=== PATIENT | male | born 1955 | race Caucasian/White ===

== ENCOUNTER 2018-04-23 08:56 | Outpatient (CLI) | payer MEDICARE ==
--- NOTE | 2018-04-23 09:36 | RAD ---
PA AND LATERAL VIEWS OF CHEST: Date: 04/23/18 HISTORY: COPD. FINDINGS: Comparison made with exam of 11/21/17. The heart size is normal. The lungs are expanded without focal areas of consolidation, pneumothoraces , or pleural effusions. No acute osseous abnormalities are seen. IMPRESSION: No radiographic evidence of acute cardiopulmonary process. POS: [facility]
== END 2018-04-23 08:57 | disposition home or self-care (01) ==
LOC: BICRAD 08:56
PROVIDERS: ATTEND Physician Assistant
DX: J44.9 Chronic obstructive pulmonary disease, unspecified (principal)
CPT/HCPCS: 71046

== ENCOUNTER 2020-09-05 11:16 | Inpatient (IN) | payer MEDICARE, MEDICAID ==
[2020-09-05] MEDS ORDERED: Aspirin Chewable 81 MG TAB ONE (11:24)
[2020-09-05] MEDS ORDERED: Nitroglycerin 2% Ointment 1 INCH/1 GM Packet ONE (11:24)
[2020-09-05 11:32] LABS: #Eosinphils 0.1 thou/uL (0.0-0.7); #Lymphocytes 1.6 thou/uL (1.20-3.40); #Monocytes 0.6 thou/uL (0.11-0.59); #Neutrophils 10.3 thou/uL (1.40-6.50); %Eosinophils 0.5 % (0.0-10.0); %Lymphocytes 12.9 % (21.0-51.0); %Neutrophils 81.7 % (42.0-75.0); Hemoglobin 14.2 g/dL (14.0-18.0); Mean Corpuscular HGB CONC 34.4 g/dL (32.0-36.0); Mean Corpuscular Hemoglobin 31.1 pg (27.0-31.0); Mean Corpuscular Volume 90.3 fL (78.0-98.0); Mean Platelet Volume 7.5 fL (7.4-10.4); Platelet Count 364 thou/uL (130-400); RBC Distribution Width 12.1 % (11.5-14.5); Red Blood Cell (RBC) Count 4.57 mill/uL (4.70-6.10); White Blood Cell (WBC) Count 12.6 thou/uL (4.8-10.8)
--- NOTE | 2020-09-05 11:37 | RAD ---
Portable frontal chest radiograph: 09/05/2020 COMPARISON: 11/21/2017 HISTORY: Code Green, unresponsive FINDINGS: Lungs are clear. Heart and mediastinal contours appear within normal limits. IMPRESSION: No acute findings.
[2020-09-05] MEDS ORDERED: Ondansetron PF 4 MG/2 ML Vial ONE (11:46)
[2020-09-05] MEDS ORDERED: Morphine 4 MG/ML VIAL ONE (11:46)
[2020-09-05 11:53] LABS: ALT (SGPT) 20 U/L (8-55); AST (SGOT) 13 U/L (5-34); Albumin 3.8 g/dL (3.4-4.8); Alkaline Phosphatase 58 U/L (40-110); Anion Gap 20 mmol/L (10-20); BUN (Urea Nitrogen) 26 mg/dL (8.4-25.7); Bilirubin, Total 0.5 mg/dL (0.2-1.2); Calc. Creatinine Clearance 0 mL/min (70-130); Calcium 8.1 mg/dL (7.8-10.44); Carbon Dioxide 21 mmol/L (23-31); Chloride 92 mmol/L (98-107); Globulin 2.8 g/dL (2.4-3.5); Glucose 110 mg/dL (80-115); Lipase 111 U/L (8-78); Protein, Total 6.6 g/dL (5.8-8.1); Sodium 130 mmol/L (136-145)
[2020-09-05 11:54] LABS: INR-International Normal Ratio 0.9; Prothrombin Time 12.7 sec (12.0-14.7)
[2020-09-05 11:58] LABS: Potassium 2.5 mmol/L (3.5-5.1)
[2020-09-05] MEDS ORDERED: Potassium Chloride 40 MEQ in Sodium Chloride 0.9% 250 ML 250 ML IVPB SCH ×2 (12:15→23:59)
[2020-09-05 12:19] LABS: CKMB 1.9 ng/mL (0-6.6)
[2020-09-05] MEDS ORDERED: Nitroglycerin 50 MG/250 ML BOT 250 ML ONE (13:42)
[2020-09-05] MEDS ORDERED: Heparin 25,000 units/D5W 500 ML ONE (13:42)
[2020-09-05] MEDS ORDERED: Heparin 25,000 units/D5W 500 ML IVPB SCH (14:15)
[2020-09-05] MEDS ORDERED: Heparin 10,000 UNITS/ 10 ML VIAL SLOW IVP SCH (14:15)
[2020-09-05] MEDS ORDERED: Aspirin Chewable 81 MG TAB PO SCH (14:15)
[2020-09-05] MEDS ORDERED: Nitroglycerin 50 MG/250 ML BOT 250 ML IVPB SCH (14:15)
--- NOTE | 2020-09-05 14:23 | PDOC.HHP ---
Hospitalist HPI Chest pain History of Present Illness: The patient is a 64-year-old male with past medical history of coronary artery disease, chronic kidney disease, COPD, and hypertension. The patient told me that he was on hospice and he ran out of his medications 4 days ago. He stated that he was on hospice due to coronary artery disease and renal failure prohibiting coronary angiogram. He presented to the ER with complaints of generalized weakness and substernal chest pain that has been uncontrolled since he ran out of his nitroglycerin. He also endorses some shortness of breath but denies cough or fever. In the ER, his troponin was slightly elevated. Allergies/Adverse Reactions: Allergy/AdvReac Type Severity Reaction Status Date / Time No Known Allergies Allergy Unverified 09/05/20 12:12 Past History: PMHx: As noted above PSHx: No past surgical history FHx: Noncontributory to current presentation Social: Current tobacco smoker, denies alcohol or illicit drug use. Hospitalist HPI ROS All other systems reviewed; all pertinent +/- noted in HPI/Subj Hospitalist Exam General Appearance: awake alert ENT: normocephalic atraumatic Neck: supple Heart: RRR Respiratory: normal chest expansion, no tachypnea Gastrointestinal: soft Extremities: no cyanosis, no clubbing Neurological: cranial nerve grossly intact, no focal deficits Hospitalist Results Result Diagrams: 09/05/20 11:23 09/05/20 11:23 Lab results: Laboratory Last Values WBC 12.6 thou/uL (4.8-10.8) H 09/05/20 11:23 RBC 4.57 mill/uL (4.70-6.10) L 09/05/20 11:23 Hgb 14.2 g/dL (14.0-18.0) 09/05/20 11:23 Hct 41.2 % (42.0-52.0) L 09/05/20 11:23 MCV 90.3 fL (78.0-98.0) 09/05/20 11:23 MCH 31.1 pg (27.0-31.0) H 09/05/20 11:23 MCHC 34.4 g/dL (32.0-36.0) 09/05/20 11:23 RDW 12.1 % (11.5-14.5) 09/05/20 11:23 Plt Count 364 thou/uL (130-400) 09/05/20 11:23 MPV 7.5 fL (7.4-10.4) 09/05/20 11:23 Neutrophils % 81.7 % (42.0-75.0) H 09/05/20 11:23 Lymphocytes % 12.9 % (21.0-51.0) L 09/05/20 11:23 Monocytes % 5.0 % (0.0-10.0) 09/05/20 11:23 Eosinophils % 0.5 % (0.0-10.0) 09/05/20 11:23 Basophils % 0.0 % (0.0-1.0) 09/05/20 11:23 Neutrophils # 10.3 thou/uL (1.40-6.50) H 09/05/20 11:23 Lymphocytes # 1.6 thou/uL (1.20-3.40) 09/05/20 11:23 Monocytes # 0.6 thou/uL (0.11-0.59) H 09/05/20 11:23 Eosinophils # 0.1 thou/uL (0.0-0.7) 09/05/20 11:23 Basophils # 0.0 thou/uL (0.0-0.2) 09/05/20 11:23 PT 12.7 sec (12.0-14.7) 09/05/20 11:23 INR 0.9 09/05/20 11:23 APTT 27.0 sec (22.9-36.1) 09/05/20 11:23 Sodium 130 mmol/L (136-145) L 09/05/20 11:23 Potassium 2.5 mmol/L (3.5-5.1) L* 09/05/20 11:23 Chloride 92 mmol/L (98-107) L 09/05/20 11:23 Carbon Dioxide 21 mmol/L (23-31) L 09/05/20 11:23 Anion Gap 20 mmol/L (10-20) 09/05/20 11:23 BUN 26 mg/dL (8.4-25.7) H 09/05/20 11:23 Creatinine 3.44 mg/dL (0.7-1.3) H 09/05/20 11:23 Estimated GFR (MDRD) 18 09/05/20 11:23 Glucose 110 mg/dL (80-115) 09/05/20 11:23 Calcium 8.1 mg/dL (7.8-10.44) 09/05/20 11:23 Total Bilirubin 0.5 mg/dL (0.2-1.2) 09/05/20 11:23 AST 13 U/L (5-34) 09/05/20 11:23 ALT 20 U/L (8-55) 09/05/20 11:23 Alkaline Phosphatase 58 U/L (40-110) 09/05/20 11:23 CK-MB (CK-2) 1.9 ng/mL (0-6.6) 09/05/20 11:23 Troponin I 0.049 ng/mL (< 0.028) H 09/05/20 11:23 Serum Total Protein 6.6 g/dL (5.8-8.1) 09/05/20 11:23 Albumin 3.8 g/dL (3.4-4.8) 09/05/20 11:23 Globulin 2.8 g/dL (2.4-3.5) 09/05/20 11:23 Albumin/Globulin Ratio 1.4 g/dL (1.2-2.2) 09/05/20 11:23 Lipase 111 U/L (8-78) H 09/05/20 11:23 Hospitalist H&P A/P (1) NSTEMI (non-ST elevated myocardial infarction) Code(s): I21.4 - NON-ST ELEVATION (NSTEMI) MYOCARDIAL INFARCTION Status: Acute (2) Coronary artery disease Code(s): I25.10 - ATHSCL HEART DISEASE OF [place] CORONARY ARTERY W/O ANG PCTRS Status: Acute (3) Chronic kidney disease Code(s): N18.9 - CHRONIC KIDNEY DISEASE, UNSPECIFIED Status: Acute (4) Hypertension Code(s): I10 - ESSENTIAL (PRIMARY) HYPERTENSION Status: Acute (5) COPD (chronic obstructive pulmonary disease) Status: Acute (6) Hypokalemia Code(s): E87.6 - HYPOKALEMIA Status: Acute Plan: Admit to CCU. Start aspirin 81 mg orally daily and atorvastatin 40 mg orally nightly. Start heparin drip and nitroglycerin drip per ACS protocol. Holding off on beta-blockers at this time as his heart rate is relatively low. Trend troponins every 3 hours. Cardiology service consulted. His COPD and hypertension are stable.
[2020-09-05 15:15] LABS: Hemoglobin 13.2 g/dL (14.0-18.0); Platelet Count 300 thou/uL (130-400)
[2020-09-05 15:41] LABS: Troponin I 0.046 ng/mL (< 0.028)
[2020-09-05] MEDS ORDERED: Communication Order-Pharmacy FS SCH (17:00)
[2020-09-05] MEDS ORDERED: Sodium Chloride 0.9% 1,000 ML IV SCH (17:15)
[2020-09-05] MEDS ORDERED: Morphine 4 MG/ML VIAL SLOW IVP SCH (17:15)
[2020-09-05 18:07] LABS: SARS-CoV-2 NAA Rapid Test Not Detected (NotDetected)
--- NOTE | 2020-09-05 18:30 | CON ---
DATE OF CONSULTATION: 09/05/2020 REASON FOR CONSULTATION: Unstable angina versus [id number] myocardial infarction. HISTORY OF PRESENT ILLNESS: Mr. Kennedy is a 64-year-old gentleman. He has received his cardiac care in [place]. He said he had a heart attack 5 or 6 months ago. He was noted to have severe renal insufficiency and was thought not to be a candidate for any catheterization or any interventional therapy. The patient continued to have chest pain. He says he has been on hospice now for several months. He is receiving oral narcotics to help control the pain, but he ran out a few days ago. The patient's pain became unbearable, central pressure in his chest, going across his chest, so nitroglycerin helps, but gives him a headache. Finally, he came here to the emergency room at this institution for further evaluation. MEDICATIONS: The patient's medicines at home included: 1. Oral narcotics. 2. Aspirin. 3. Statin therapy. ALLERGIES: NONE KNOWN. SOCIAL HISTORY: He says he "smokes about five cigarettes per day, but I do not inhale it." He says he does not have any family nearby. PAST MEDICAL HISTORY: As mentioned above, previous heart attack, increasing amounts of chest pain over the last several months, especially the last few weeks. PHYSICAL EXAMINATION: GENERAL: This is a 64-year-old gentleman. VITAL SIGNS: Blood pressure 130 systolic, pulse in the 60s and it is currently sinus and earlier he had a junctional rhythm. NECK: Neck veins are normal. Carotid, normal upstrokes and no bruits. LUNGS: Clear. CARDIAC: Normal S1 and normal S2. I do not hear a murmur, rub, or gallop. ABDOMEN: Obese and nontender. No hepatosplenomegaly. EXTREMITIES: Warm and dry. No clubbing or cyanosis. He has no edema. He has good posterior tibial pulses. PERTINENT LABORATORY DATA: His potassium was 2.5. Troponin 0.049 and then 0.046. Creatinine 3.44, estimated GFR is 18, compatible with stage 4 renal failure. EKG revealed a junctional rhythm, PVCs, some ST depression in V4 and V5. ASSESSMENT: 1. Acute coronary syndrome. 2. Probable multivessel coronary artery disease. Heart looks large on chest x-ray. The echocardiogram has been done. I have just been able to briefly see some images. It looks like it is at least moderately depressed, but I will officially interpret the echo shortly. 3. Hypokalemia. 4. Stage 4 renal failure. 5. The patient has intractable angina. Previously, he has been on hospice, but wishes to come off hospice if there is anything else that can be done to help him. PLAN: 1. Intravenous heparin. 2. Nitrates. 3. Aspirin. 4. We talked about cardiac catheterization. I explained to him that with a GFR of 18, very high probability, he will need to undergo hemodialysis shortly after this. He understands that entails long-term dialysis usually 3 days per week for several hours at a time. However, in view of his continued severe angina at rest, prognosis without any intervention looks very poor. He understands risk of a very high probability of renal failure, stroke, heart attack, loss of blood flow to the leg or kidney, stent thrombosis, stent restenosis. He understands that he may need bypass surgery. He is not opposed to that if it would help him. He understands it is difficult situation and is critical situation and wishes to proceed. Job ID: [id number]
[2020-09-05] MEDS: Atorvastatin Calcium 40 MG TAB PO SCH (20:45)
[2020-09-05] MEDS: Morphine 2 MG/ML VIAL SLOW IVP PRN (20:53)
[2020-09-05] MEDS ORDERED: Metoprolol Tartrate 25 MG TAB PO SCH (21:00)
[2020-09-05 23:12] LABS: Lactic Acid 1.5 mmol/L (0.5-2.2)
[2020-09-05 23:17] LABS: Albumin 3.2 g/dL (3.4-4.8); Anion Gap 17 mmol/L (10-20); BUN (Urea Nitrogen) 28 mg/dL (8.4-25.7); BUN/Creatinine Ratio 8.56; Calc. Creatinine Clearance 27 mL/min (70-130); Calcium 7.4 mg/dL (7.8-10.44); Carbon Dioxide 21 mmol/L (23-31); Chloride 99 mmol/L (98-107); Glucose 116 mg/dL (80-115); Phosphorus 4.9 mg/dL (2.3-4.7); Sodium 134 mmol/L (136-145)
[2020-09-05 23:19] LABS: Potassium 2.6 mmol/L (3.5-5.1)
[2020-09-05] MEDS ORDERED: Electrolyte Replacement Protocol 1 EACH FS SCH (23:45)
[2020-09-05] MEDS ORDERED: Calcium Gluconate 4.6 MEQ in Sodium Chloride 0.9% 100 ML IVPB SCH (23:59)
[2020-09-06] MEDS: NS 0.9% w/ 20 MEQ KCL 1,000 ML/1,000 ML BAG IV SCH ×3 (00:05→17:04)
[2020-09-06 00:14] LABS: CKMB 1.7 ng/mL (0-6.6)
[2020-09-06] MEDS: Morphine 2 MG/ML VIAL SLOW IVP PRN ×7 (00:29→21:55)
[2020-09-06 02:34] LABS: Anion Gap 13 mmol/L (10-20); BUN (Urea Nitrogen) 28 mg/dL (8.4-25.7); Calc. Creatinine Clearance 29 mL/min (70-130); Calcium 7.9 mg/dL (7.8-10.44); Carbon Dioxide 23 mmol/L (23-31); Cardiac Risk 3.4 (Less than 4.5); Chloride 102 mmol/L (98-107); Cholesterol 91 mg/dl (< 200 Desired); Glucose 117 mg/dL (80-115); HDL Cholesterol 27 mg/dL (>60 Neg Risk); LDL Cholesterol, Calculated 41 mg/dL; Sodium 135 mmol/L (136-145); Triglycerides 116 mg/dL (Less than 150)
[2020-09-06 02:52] LABS: CKMB 1.6 ng/mL (0-6.6)
[2020-09-06] MEDS ORDERED: Fluticasone Propionate Nasal Spray 16 gm Bottle NASAL SCH ×2 (03:30→09:00)
[2020-09-06 06:44] LABS: Potassium 3.1 mmol/L (3.5-5.1)
[2020-09-06] MEDS ORDERED: Fentanyl 100 MCG/2 ML VIAL ONE (07:54)
[2020-09-06] MEDS ORDERED: Midazolam HCl 2 mg/2 ml Vial ONE (07:54)
[2020-09-06] MEDS ORDERED: Aspirin 81 mg Enteric Coated Tablet PO SCH (09:00)
[2020-09-06] MEDS ORDERED: Acetaminophen/Codeine 30-300mg Tablet PO PRN ×2 (09:50)
[2020-09-06] MEDS ORDERED: Sodium Chloride 0.9% 200 ML IV PRN (09:50)
[2020-09-06] MEDS ORDERED: Nitroglycerin 0.4 MG TAB (25 Tab Bottle) SL PRN (09:50)
[2020-09-06] MEDS ORDERED: Communication Order-Pharmacy FS SCH (10:50)
[2020-09-06] MEDS ORDERED: CEFAZOLIN 2 GM in Premix Bag 1 BAG IVPB SCH (12:00)
--- NOTE | 2020-09-06 13:27 | CON ---
DATE OF CONSULTATION: 09/06/2020 REQUESTING PHYSICIAN: Marylin aMckey MD CHIEF COMPLAINT: Chest pain. HISTORY OF PRESENT ILLNESS: The patient is a 64-year-old man who until fairly recently seldom went to the doctor while vacationing in [place] last fall. He awoke with swelling in his lower extremities and face and when he presented to the emergency room, he was told that he was having a heart attack. He denied any chest pain at that time and was somewhat incredulous. He did, however, wind up driving himself to [facility] to seek medical attention. There, he was found to have renal insufficiency, severe enough to make cardiac catheterization quite problematic, and according to his description, it was deemed not a candidate for any sort of intervention and was placed on hospice. His angina has been managed with narcotics. He describes having been diagnosed with hypertension and was started on clonidine, which was switched to Norvasc and lisinopril because of dizziness and lightheadedness. He did get started on aspirin but denies any beta blockade or statin medications. PAST MEDICAL HISTORY: As above. ALLERGIES: HE DENIES ANY MEDICAL ALLERGIES. SOCIAL HISTORY: He smoked 2 to 3 packs of cigarettes per day for many years, but cut down rather drastically. FAMILY HISTORY: Significant for multiple family members with cancer and with substance abuse, but he is not aware of any family members with premature coronary disease, renal failure. REVIEW OF SYSTEMS: Negative for any eye, speech, facial, or extremity symptoms consistent with TIAs. Negative for any antecedent shortness of breath or dependent edema, other than that mentioned in the history of present illness. It is negative for any claudication. PHYSICAL EXAMINATION: GENERAL: He is 5 feet 10 inches and weighs 182 pounds. VITAL SIGNS: Heart rate is in the 60s to 70s, blood pressure 100 to 125 over 60 to 90. HEENT: He has no xanthelasma. No JVD. No carotid bruits. CHEST: Clear to auscultation. He is able to blow out forcefully against my hand. He has regular rate and rhythm without murmur or gallop. ABDOMEN: Soft, nontender he has easily palpable radial, femoral, and posterior tibial pulses bilaterally. EXTREMITIES: He has no clubbing, cyanosis, or edema. Neurologic exam is grossly intact. LABORATORY DATA: White count 12.6, hemoglobin 14.2, hematocrit 41.2, platelets 364,000. PT was 12.7, INR 0.9. Sodium was 130, potassium 3.5, chloride 92, CO2 of 21, BUN 26, creatinine 3.44 with overnight hydration in anticipation of this morning's cardiac catheterization. His BUN was 28, creatinine 3.02. Estimated GFR this morning was 21 and was 18 at the time of presentation. His troponins remained fairly steady in the 0.046 to 0.057 range. Calcium was 8.1, bilirubin 0.5, alkaline phosphatase 58, AST 13, ALT 20, protein was 6.6, albumin 3.8. Fasting lipids; triglycerides 116, cholesterol 91, LDL 41, and HDL 27. COVID negative. DIAGNOSTIC STUDIES: His chest x-ray shows perhaps some cardiomegaly, primarily LVH. He has some slight flattening to the diaphragms. No obvious aortic noncalcification. His cardiac catheterization shows a very short left main or perhaps common ostia to the LAD and circumflex system. The LAD has about a 70% or 80% ostial lesion. There is minimal disease in a large obtuse marginal that arborizes posterolaterally. He has a subtotal lesion in his mid right coronary that is very long and complex and the distal vessels were similar in size or perhaps little bit bigger than the 5-[place] catheter used for the injection and they can be seen filling on the left-sided injections as well as right. LVEF is around 35%. LV pressure was 132/4 with an EDP of 11. Aortic pressure on pullback was 143/73 with a mean of 100. IMPRESSION AND PLAN: Very high-grade ostial LAD in mid right coronary lesions with decreased LV function. Anatomically, I think the patient is an adequate candidate for revascularization and physiologically though increased risk due to his mildly decreased LV function and renal insufficiency is far from a prohibitive candidate. He has been told both by me and by his nutrition associate here that he is very apt to wind up going on dialysis, part of my discussion was that even if his renal function deteriorates and then recovers following this procedure, his baseline renal function is bad enough that he is very apt to progress to end-stage renal disease in the near future. I would anticipate that dialysis will be necessary post CABG and have discussed strategies that include placement of a dialysis catheter at the time of surgery to use in the perioperative period and to avoid use of the radial arteries to save them for long-term dialysis access. Job ID: [id number]
[2020-09-06] MEDS ORDERED: Diazepam 2 MG TAB PO PRN (14:10)
[2020-09-06] MEDS ORDERED: Potassium Chloride 20 MEQ TAB PO SCH (15:00)
[2020-09-06] MEDS: Morphine ER 15 MG TAB PO SCH ×2 (15:12→20:11)
--- NOTE | 2020-09-06 17:22 | ULT ---
RENAL ULTRASOUND: 09/06/20 PROVIDED CLINICAL HISTORY: Chronic kidney disease. FINDINGS: Right kidney measures about 10.4 x 5.7 x 4.7 cm and demonstrates no evidence for hydronephrosis or ma ss. Left kidney measures about 11 x 6.0 x 4.5 cm and demonstrates no evidence for hydronephrosis or mass. The urinary bladder is decompressed by Bel[place] catheter and not evaluated. IMPRESSION: No evidence for hydronephrosis. POS: [facility]
[2020-09-06] MEDS ORDERED: Iopamidol 370 76% 100 ML VIAL ONE (17:48)
--- NOTE | 2020-09-06 18:48 | PDOC.HOSPP ---
- Subjective Encounter Date: 09/06/20 Encounter Time: 14:00 Subjective: Patient seen and examined for non-ST elevation IA/coronary artery disease. Denies any chest pain, palpitations or syncope. No shortness of breath or fever reported - Objective Vital Signs & Weight: Vital Signs (12 hours) Temp Pulse Resp BP Pulse Ox 09/06/20 16:00 98.6 F 09/06/20 09:50 80 18 149/90 H 09/06/20 07:36 100 09/06/20 07:00 98.0 F Weight Weight 182 lb 1.629 oz Most Recent Monitor Data Heart Rate from ECG 69 NIBP 130/66 NIBP BP-Mean 87 Respiration from ECG 13 SpO2 100 I&O: 09/05/20 09/06/20 09/07/20 06:59 06:59 06:59 Intake Total 2665 1216 Output Total 1025 2320 Balance 1640 -1104 Result Diagrams: 09/05/20 15:04 09/06/20 06:24 Additional Labs: Abnormal Lab Results - Last 48 hrs 09/05/20 11:23: WBC 12.6 H, RBC 4.57 L, Hct 41.2 L, MCH 31.1 H, Neutrophils % 81.7 H, Lymphocytes % 12.9 L, Neutrophils # 10.3 H, Monocytes # 0.6 H 09/05/20 11:23: Sodium 130 L, Potassium 2.5 L*, Chloride 92 L, Carbon Dioxide 21 L, BUN 26 H, Creatinine 3.44 H, Lipase 111 H 09/05/20 11:23: Troponin I 0.049 H 09/05/20 15:04: Troponin I 0.046 H 09/05/20 15:04: Hgb 13.2 L, Hct 38.4 L 09/05/20 18:08: Troponin I 0.050 H 09/05/20 22:44: APTT 114.0 H 09/05/20 22:44: Sodium 134 L, Potassium 2.6 L*, Carbon Dioxide 21 L, BUN 28 H, Creatinine 3.27 H, Calcium 7.4 L, Phosphorus 4.9 H, Albumin 3.2 L 09/05/20 22:44: Troponin I 0.057 H 09/06/20 01:54: Sodium 135 L, Potassium 3.0 L, BUN 28 H, Creatinine 3.02 H 09/06/20 01:54: B-Natriuretic Peptide 229.9 H 09/06/20 01:54: Troponin I 0.058 H 09/06/20 06:23: APTT 82.0 H 09/06/20 06:24: Potassium 3.1 L 09/06/20 11:01: Crossmatch See Detail Radiology Reviewed by me: Yes (Chest x-rayno infiltrate) EKG Reviewed by me: Yes (Sinus rhythm on telemetry) Hospitalist ROS - Review of Systems Respiratory: denies: cough, dry, shortness of breath, hemoptysis, SOB with excertion, pleuritic pain, sputum, wheezing, other Gastrointestinal: denies: nausea, vomiting, abdominal pain, diarrhea, constipation, melena, hematochezia, other - Medication Medications: Active Medications Generic Name Dose Route Start Last Admin Trade Name Freq PRN Reason Stop Dose Admin Acetaminophen/Codeine Phosphate 2 tab 09/06/20 09:50 09/06/20 12:20 Acetaminophen/Codeine 30-300mg Tablet PO 09/07/20 08:30 2 tab Q4H PRN Administration Moderate Pain (4-6) Aspirin 81 mg 09/06/20 09:00 09/06/20 10:40 Aspirin 81 Mg Enteric Coated Tablet PO 09/07/20 08:30 81 mg DAILY KATHIE Administration Atorvastatin Calcium 40 mg 09/05/20 21:00 09/05/20 20:45 Atorvastatin Calcium 40 Mg Tab PO 09/07/20 08:30 40 mg HS KATHIE Administration Fluticasone Propionate 0 gm 09/06/20 09:00 09/06/20 09:05 Fluticasone Propionate Nasal [place] 16 Gm Bottle NASAL 09/07/20 08:30 Not Given DAILY KATHIE Potassium Chloride/Sodium Chloride 1,000 ml in 1,000 mls @ 100 mls/hr 09/05/20 23:30 09/06/20 17:04 Ns 0.9% W/ 20 Meq Kcl IV 09/07/20 08:30 1,000 mls .Q10H KATHIE Administration Morphine Sulfate 2 mg 09/05/20 14:06 09/06/20 18:11 Morphine 2 Mg/Ml Vial SLOW IVP 09/07/20 08:30 2 mg Q5MIN PRN Administration Chest Pain Morphine Sulfate 15 mg 09/06/20 15:00 09/06/20 15:12 Morphine Er 15 Mg Tab PO 09/06/20 23:59 15 mg TID KATHIE Administration Potassium Chloride 40 meq 09/06/20 15:00 09/06/20 14:11 Potassium Chloride 20 Meq Tab PO 09/07/20 08:30 40 meq 1500 KATHIE Administration Sodium Chloride 10 ml 09/06/20 09:00 09/06/20 09:05 Flush - Normal Saline 10 Ml Syringe IVF 09/07/20 08:30 Not Given Q12HR [facility] Hospitalist Exam Vitals: Vital Signs (12 hours) Temp Pulse Resp BP Pulse Ox 09/06/20 16:00 98.6 F 09/06/20 09:50 80 18 149/90 H 09/06/20 07:36 100 09/06/20 07:00 98.0 F Weight Weight 182 lb 1.629 oz Most Recent Monitor Data Heart Rate from ECG 69 NIBP 130/66 NIBP BP-Mean 87 Respiration from ECG 13 SpO2 100 General Appearance: awake alert Neck: supple, no JVD Heart: RRR, no gallops, no rubs, normal peripheral pulses Respiratory: no wheezes, no rales, no ronchi, normal chest expansion Gastrointestinal: soft, normal bowel sounds, no guarding, no rigidity Extremities: no cyanosis, no clubbing, no edema Extremities - other findings: No calf tenderness Neurological: no new deficit Psychiatric: normal affect, A&O x 3 Hosp A/P (1) NSTEMI (non-ST elevated myocardial infarction) Code(s): I21.4 - NON-ST ELEVATION (NSTEMI) MYOCARDIAL INFARCTION Status: Acute (2) Chronic kidney disease Code(s): N18.9 - CHRONIC KIDNEY DISEASE, UNSPECIFIED Status: Acute Qualifiers: Chronic kidney disease stage: stage 3 (moderate) (3) Coronary artery disease Code(s): I25.10 - ATHSCL HEART DISEASE OF [place] CORONARY ARTERY W/O ANG PCTRS Status: Acute (4) Hypertension Code(s): I10 - ESSENTIAL (PRIMARY) HYPERTENSION Status: Acute (5) Hypokalemia Code(s): E87.6 - HYPOKALEMIA Status: Acute - Plan 64-year-old male with diabetes mellitus type 2, hypertension and cardiomyopathy currently under hospice presented to the hospital on 09/05 with chest discomfort. His work-up was consistent with non-ST elevation IA. Non-ST elevation IA causing chest pain Plan for CABG in a.m. Cardiology and CV input appreciated. Continue aspirin with statins. Morphine as needed for chest pain Chronic systolic heart failure with ejection fraction 30 to 35% due to ischemic cardiomyopathy RAFI inhibitor on hold due to CKD CKD stage III Consult nephrology. Renal ultrasound negative for obstructive uropathy Electrolyte abnormality including hyponatremia, hypokalemia Replace electrolytes and monitor on the daily basis Tobacco dependence Lifestyle modification emphasized Chronic pain syndrome Patient is currently under hospice. He is on high dose of long-acting morphine with benzodiazepines. We will start MS Contin 15 mg 3 times daily for today whi ch will be discontinued at midnight
[2020-09-06] MEDS: Atorvastatin Calcium 40 MG TAB PO SCH (20:11)
--- NOTE | 2020-09-06 21:21 | EKG ---
Test Reason : STAT Blood Pressure : / mmHG Vent. Rate : 063 BPM Atrial Rate : 063 BPM P-R Int : 150 ms QRS Dur : 104 ms QT Int : 506 ms P-R-T Axes : 068 059 082 degrees QTc Int : 517 ms Sinus rhythm with occasional Premature ventricular complexes Nonspecific ST and T wave abnormality Abnormal ECG When compared with ECG of 05-SEP-2020 11:22, (Unconfirmed) Incomplete left bundle branch block is no longer Present Non-specific change in ST segment in Inferior leads Confirmed by ALMA FUNG, . SAnastacia (4) on 09/06/2020 9:21:09 PM Referred By: MAE Confirmed By:DR. Kennedy MARQUEZ MD
[2020-09-07] MEDS: Morphine 2 MG/ML VIAL SLOW IVP PRN ×4 (01:18→14:30)
[2020-09-07] MEDS: NS 0.9% w/ 20 MEQ KCL 1,000 ML/1,000 ML BAG IV SCH (03:44)
[2020-09-07 04:05] LABS: #Eosinphils 0.2 thou/uL (0.0-0.7); #Lymphocytes 2.1 thou/uL (1.20-3.40); #Monocytes 0.4 thou/uL (0.11-0.59); #Neutrophils 3.5 thou/uL (1.40-6.50); %Basophils 0.8 % (0.0-1.0); %Eosinophils 2.9 % (0.0-10.0); %Lymphocytes 32.8 % (21.0-51.0); %Neutrophils 56.4 % (42.0-75.0); Hemoglobin 12.6 g/dL (14.0-18.0); Mean Corpuscular HGB CONC 33.4 g/dL (32.0-36.0); Mean Corpuscular Hemoglobin 30.4 pg (27.0-31.0); Mean Corpuscular Volume 91.2 fL (78.0-98.0); Mean Platelet Volume 7.6 fL (7.4-10.4); Platelet Count 317 thou/uL (130-400); RBC Distribution Width 12.5 % (11.5-14.5); Red Blood Cell (RBC) Count 4.13 mill/uL (4.70-6.10); White Blood Cell (WBC) Count 6.3 thou/uL (4.8-10.8)
[2020-09-07 04:23] LABS: Anion Gap 11 mmol/L (10-20); BUN (Urea Nitrogen) 19 mg/dL (8.4-25.7); Calc. Creatinine Clearance 49 mL/min (70-130); Calcium 7.7 mg/dL (7.8-10.44); Carbon Dioxide 21 mmol/L (23-31); Chloride 111 mmol/L (98-107); Glucose 89 mg/dL (80-115); Magnesium 1.8 mg/dL (1.6-2.6); Sodium 139 mmol/L (136-145)
[2020-09-07 04:30] LABS: Phosphorus 2.4 mg/dL (2.3-4.7)
[2020-09-07] MEDS ORDERED: Fentanyl 100 MCG/2 ML VIAL ONE ×2 (06:35→13:51)
[2020-09-07] MEDS ORDERED: Midazolam HCl 2 mg/2 ml Vial ONE (06:35)
[2020-09-07] MEDS ORDERED: Vecuronium 10 MG VIAL ONE ×3 (06:36→09:56)
[2020-09-07] MEDS ORDERED: Midazolam HCl 5 mg/5 ml Vial ONE (06:36)
[2020-09-07] MEDS ORDERED: Dexmedetomidine 200 MCG/2 ML VIAL ONE (06:36)
[2020-09-07] MEDS ORDERED: Albumin 5% 500 ML ONE (06:38)
[2020-09-07] MEDS ORDERED: Heparin 10,000 UNITS/1 ML VIAL 30,000 UNITS in Sodium Chloride 0.9% 1,000 ML FS SCH (07:00)
--- NOTE | 2020-09-07 07:00 | CON ---
DATE OF CONSULTATION: 09/06/2020 CONSULTING PHYSICIAN: Dr. Hawk. REASON FOR CONSULTATION: Acute kidney injury. REASON FOR ADMISSION: Chest pain. HISTORY OF PRESENT ILLNESS: This is a 64-year-old male with history of coronary artery disease, chronic kidney disease, COPD, came to the hospital with chest pain. Apparently the patient has been having some cardiac issues and coronary artery disease, and he had a recent evaluation at [facility] where he was having renal failure and not able to have much cardiac interventions and was placed on hospice, but the patient got out of the hospice and got admitted here with chest pain and is wanting to pursue aggressive measures with plans to even have a coronary artery bypass grafting for multivessel disease. Cardiology and Cardiovascular Surgery are on board with that. The patient was also found to have with a GFR around 17. Nephrology is consulted. The patient denied to me that he had seen Nephrology in the past and he was never told to have any renal function, but from the notes it seems like he knew about his renal dysfunction. Plan is to get some labs from his previous hospitalization few months back. PAST MEDICAL HISTORY: Positive for; 1. Coronary artery disease. 2. COPD. 3. CKD. 4. Hypertension. PAST SURGICAL HISTORY: None. HOME MEDICATIONS: Reviewed. ALLERGIES: NO KNOWN DRUG ALLERGIES. SOCIAL HISTORY: History of smoking, alcohol use in the past. FAMILY HISTORY: No history of kidney disease. REVIEW OF SYSTEMS: CONSTITUTIONAL: Negative for weight loss or gain, ability to conduct usual activities. SKIN: Negative for rash, itching. EYES: Negative for double vision, pain. ENT/MOUTH: Negative for nose bleeding, neck stiffness, pain, tenderness. CARDIOVASCULAR: Negative for palpitations, dyspnea on exertion, orthopnea. RESPIRATORY: Negative for shortness of breath, wheezing, cough, hemoptysis, fever or night sweats. GASTROINTESTINAL: Negative for poor appetite, abdominal pain, heartburn, nausea, vomiting, constipation, or diarrhea. GENITOURINARY: Negative for urgency, frequency, dysuria, nocturia. MUSCULOSKELETAL: Negative for pain, swelling. NEUROLOGIC/PSYCHIATRIC: Negative for anxiety, depression. ALLERGY/IMMUNOLOGIC: Negative for skin rash, bleeding tendency. PHYSICAL EXAMINATION: GENERAL: This is a well-built male, in no apparent distress. VITAL SIGNS: Temperature 98.0, pulse 73, respiratory rate 18, blood pressure HEENT: Atraumatic, normocephalic. Oral mucosa moist. NECK: Supple. CV: S1 and S2, rate and rhythm regular. RESPIRATORY: Clear. GI: Abdomen is soft. MUSCULOSKELETAL: 1+ edema. DERMATOLOGIC: No skin rash. NEUROLOGIC: Alert and awake. PSYCHIATRIC: Mood and affect normal. LABORATORY DATA: Hemoglobin 13.2. Potassium 3.0, BUN is 28, creatinine is 3.02. ASSESSMENT AND PLAN: 1. Acute kidney injury on chronic kidney disease stage 4, stable, but the patient is high risk for complications during the surgery and he understands that and he also has a high risk of leading to end-stage renal disease requiring dialysis. The patient is to take the risk at this point, given his cardiac status. 2. Hyponatremia. 3. Hypokalemia. Replace and monitor. 4. Edema. 5. History of hypertension. 6. Cardiorenal syndrome. 7. Anemia of chronic disease. We will check CKD labs. We will check renal ultrasound. We will get labs from his previous hospitalization. The patient understands renal risks associated with surgery and willing to take the risk and proceed with surgery. We will continue to follow his renal function perioperatively. Thank you for the consult. Job ID: [id number]
[2020-09-07] MEDS ORDERED: CEFAZOLIN 2 GM in Premix Bag 1 BAG IVPB SCH (07:15)
[2020-09-07] MEDS ORDERED: Heparin 10,000 UNITS/ 10 ML VIAL ONE (08:20)
[2020-09-07] MEDS ORDERED: Sodium Chloride 0.9% 10 ML ONE (08:20)
[2020-09-07] MEDS ORDERED: Sodium Chloride 0.9% 20 ML ONE (08:45)
[2020-09-07] MEDS ORDERED: Guaifenesin DM 100-10/5 ML UDCUP PO PRN (09:26)
[2020-09-07] MEDS ORDERED: Promethazine HCl 25 MG/ML VIAL IM PRN (09:26)
[2020-09-07] MEDS ORDERED: Bisacodyl 10 MG SUPP PR PRN (09:26)
[2020-09-07] MEDS ORDERED: Acetaminophen 325 MG TAB PO PRN (09:26)
[2020-09-07] MEDS ORDERED: Norepinephrine 8 MG/0.9% NS 250 ML IVPB PRN (09:26)
[2020-09-07] MEDS ORDERED: Fentanyl 100 MCG/2 ML VIAL SLOW IVP PRN (09:26)
[2020-09-07] MEDS ORDERED: Mag-Al 1200 mg/1200 mg/30 ML UDCUP PO PRN (09:26)
[2020-09-07] MEDS ORDERED: Potassium Chloride 20 MEQ/100 ML PREMIX BAG IVPB PRN (09:26)
[2020-09-07] MEDS ORDERED: Ondansetron PF 4 MG/2 ML Vial IVP PRN (09:26)
[2020-09-07] MEDS ORDERED: hydrALAZINE 20 MG/ML VIAL SLOW IVP PRN (09:26)
[2020-09-07] MEDS ORDERED: Nitroglycerin 50 MG/250 ML BOT 250 ML IVPB PRN (09:26)
[2020-09-07] MEDS ORDERED: Post-Op Insulin Drip Protocol IVPB ONE (09:26)
[2020-09-07] MEDS ORDERED: Hetastarch 6% 500 ML 500 ML IVPB PRN (09:26)
[2020-09-07] MEDS ORDERED: niCARdipine 25 MG in Sodium Chloride 0.9% 250 ML 240 ML IVPB PRN (09:26)
[2020-09-07] MEDS ORDERED: Bisacodyl 5 MG TAB PO PRN (09:26)
[2020-09-07] MEDS ORDERED: Potassium Chloride 60 MEQ/30 ML VIAL ONE (09:56)
[2020-09-07] MEDS ORDERED: Sodium Bicarb 50 MEQ/50 ML Abboject 8.4% SYRINGE ONE ×2 (09:56→14:51)
[2020-09-07] MEDS ORDERED: Heparin 5,000 UNITS/ML VIAL ONE (09:56)
[2020-09-07] MEDS ORDERED: Cardioplegic Soln 1,000 ML BAG ONE (09:56)
[2020-09-07] MEDS ORDERED: Ketorolac Tromethamine 30 MG/ML VIAL ONE (09:56)
[2020-09-07] MEDS ORDERED: Ondansetron PF 4 MG/2 ML Vial ONE (09:56)
[2020-09-07] MEDS ORDERED: Aminocaproic Acid 5 GM/20 ML VIAL ONE (09:56)
[2020-09-07] MEDS ORDERED: Norepinephrine 4 MG/4 ML VIAL ONE (09:56)
[2020-09-07] MEDS ORDERED: Heparin 30,000 units/30 ml VIAL ONE (09:56)
[2020-09-07] MEDS ORDERED: Calcium Chloride 1 GM/10 ML Abboject SYRINGE ONE (09:56)
[2020-09-07] MEDS ORDERED: PHENYLEPHRINE-NS 100 MCG/ML 10 ML SYRINGE ONE (09:56)
[2020-09-07] MEDS ORDERED: Lidocaine 2% PF 100 mg/5 ml Syringe ONE (09:56)
[2020-09-07] MEDS ORDERED: Protamine Sulfate 250 MG/25 ML VIAL ONE (09:56)
[2020-09-07] MEDS ORDERED: Lidocaine 1% PF 5 ML VIAL ONE ×2 (09:56)
[2020-09-07] MEDS ORDERED: Dexamethasone 20 MG/5 ML VIAL ONE (09:56)
[2020-09-07] MEDS ORDERED: Thrombin 5000 UNITS/5 ML VIAL ONE (09:56)
[2020-09-07] MEDS ORDERED: Mannitol 12.5 GM/50 ML ONE (09:56)
[2020-09-07] MEDS ORDERED: Papaverine 60 MG/2 ML VIAL ONE (09:56)
[2020-09-07] MEDS ORDERED: Magnesium Sulfate 1 GM/2 ML VIAL ONE (09:56)
[2020-09-07] MEDS ORDERED: Milrinone 10 MG/10 ML VIAL ONE (10:06)
[2020-09-07] MEDS ORDERED: Insulin Regular 300 UNITS/3 ML VIAL SC PRN (10:45)
[2020-09-07] MEDS ORDERED: HUMULIN R 100 UNITS in Sodium Chloride 0.9% 100 ML IVPB SCH (10:45)
[2020-09-07] MEDS ORDERED: Dextrose 5% in Water 1,000 ML IV PRN (10:45)
[2020-09-07] MEDS ORDERED: Dextrose 50% Abboject 50 ML SYRINGE SLOW IVP PRN (10:45)
[2020-09-07] MEDS ORDERED: CEFAZOLIN 1 GM VIAL ONE ×2 (10:46→10:53)
[2020-09-07] MEDS: Docusate 100 MG CAP PO SCH ×2 (11:35→20:32)
[2020-09-07] MEDS ORDERED: Ergocalciferol 1.25 MG(50,000 UNITS) CAP PO SCH (12:00)
[2020-09-07] MEDS ORDERED: Multivit, Therapeutic 1 TAB PO SCH (12:00)
[2020-09-07] MEDS ORDERED: Amiodarone 150 MG/3 ML VIAL ONE (12:12)
--- NOTE | 2020-09-07 13:09 | PRG ---
DATE OF SERVICE: 09/07/2020 SUBJECTIVE: Patient was seen and examined at bedside and overnight events noted. Patient denies any shortness of breath or chest pain or palpitation. No history of nausea or vomiting or diarrhea or fever or chills or cramps. OBJECTIVE: General: This is a well-built male, in no apparent distress. Vital Signs: Temperature 97.4. Heart Rate 68. Respiratory rate 22. Blood pressure 135/72. HEENT: Atraumatic, normocephalic. Oral mucosa is moist. Neck: Supple. Cardiovascular: S1, S2 heard. Rate and rhythm regular. Respiratory: Clear to auscultation. Gastrointestinal: Abdomen is soft. Musculoskeletal: No tenderness. No edema. Dermatologic: No skin rash. Neurologic: Alert and awake and oriented x3. No focal neurologic deficits. Moving all the extremities. Psychiatric: Mood and affect normal. LABORATORY DATA: Potassium 4.0, BUN is 19, creatinine is 1.7. ASSESSMENT AND PLAN: 1. Acute kidney injury on chronic kidney disease, stage 3. Renal function improvement today. 2. Hyponatremia. 3. Hypokalemia. 4. Edema. 5. Hypertension. 6. Cardiorenal syndrome. 7. Anemia of chronic disease. We will continue to monitor labs. Avoid nephrotoxins. We will follow. Job ID: [id number]
[2020-09-07] MEDS ORDERED: SUGAMMADEX SODIUM 200 MG/2 ML VIAL ONE (13:22)
[2020-09-07] MEDS: Sodium Chloride 0.9% 1,000 ML IV SCH ×2 (13:24→20:34)
[2020-09-07 14:17] LABS: Hemoglobin 12.9 g/dL (14.0-18.0); Mean Corpuscular HGB CONC 32.6 g/dL (32.0-36.0); Mean Corpuscular Hemoglobin 30.6 pg (27.0-31.0); Mean Corpuscular Volume 93.6 fL (78.0-98.0); Mean Platelet Volume 8.1 fL (7.4-10.4); Platelet Count 295 thou/uL (130-400); RBC Distribution Width 12.6 % (11.5-14.5); Red Blood Cell (RBC) Count 4.22 mill/uL (4.70-6.10); White Blood Cell (WBC) Count 23.7 thou/uL (4.8-10.8)
[2020-09-07 14:20] LABS: INR-International Normal Ratio 1.3; PTT 28.8 sec (22.9-36.1); Prothrombin Time 16.1 sec (12.0-14.7)
[2020-09-07 14:26] LABS: Potassium 4.8 mmol/L (3.5-5.1)
[2020-09-07 14:33] LABS: Anion Gap 16 mmol/L (10-20); BUN (Urea Nitrogen) 17 mg/dL (8.4-25.7); Calc. Creatinine Clearance 55 mL/min (70-130); Calcium 8.1 mg/dL (7.8-10.44); Carbon Dioxide 18 mmol/L (23-31); Chloride 113 mmol/L (98-107); Glucose 180 mg/dL (80-115); Potassium 4.8 mmol/L (3.5-5.1); Sodium 142 mmol/L (136-145)
[2020-09-07 14:34] LABS: Band 11 % (5-11); Eosinophils 1 % (0-10); Lymphocytes 4 % (21-51); MDiff Complete? YES; Monocytes 3 % (0-10); Neutrophil 77 % (42-75); Ovalocytes SLIGHT = 2-5 cells (100X) (0-1/hpf); Platelet Morphology Comment Appears Adequate; Polychromasia SLIGHT = 2-3 cells (100X) (0-2/hpf); Reactive Lymphocytes 2 % (0-10)
[2020-09-07 14:37] LABS: Actual Bicarbonate (HCO3a) 20.6 mEq/L (22-28); Analyzer IN Cardio OR; Base Excess (BEa) -6.5 mEq/L (-2.0 to +3.0); CO2 Tension 47.2 mmHg (35.0-45.0); Calcium, Ionized (arterial) 1.16 mmol/L (1.12-1.30); Carboxyhemoglobin (COHb) 0.5 gm% (0.0-3.0); Hemoglobin (Hb) 12.8 g/dL (14.0-18.0); O2 Tension (PaO2), arterial 227.8 mmHg (> 80.0); Potassium - ABG Lab 4.47 mmol/L (3.70-5.30); pH, Arterial 7.26 (7.35-7.45)
[2020-09-07 14:38] LABS: Puncture Site Arterial Line
--- NOTE | 2020-09-07 14:55 | RAD ---
CHEST ONE VIEW: 09/07/20 HISTORY: Open heart surgery. COMPARISON: Radiograph prior day. FINDINGS: Multiple midline sternotomy wires. Mediastinal drains are present. Right thoracostomy tube is in place. No high grade pneumothorax. Right subclavian central venous cath eter tip projects over the inferior SVC. No confluent air space consolidation, pneumothorax or effusion. No acute osseous abnormality. IMPRESSION: Uncomplicated postoperative appearance. POS: HOME
[2020-09-07] MEDS ORDERED: Sodium Bicarb 50 MEQ/50 ML Abboject 8.4% SYRINGE IVP SCH (15:15)
--- NOTE | 2020-09-07 15:38 | PDOC.HOSPP ---
- Subjective Encounter Date: 09/07/20 Encounter Time: 15:36 non-verbal Subjective: Patient seen and examined for non-ST elevation WA. Status post CABG. Events noted. - Objective Vital Signs & Weight: Vital Signs (12 hours) Temp Pulse Ox 09/07/20 14:43 100 09/07/20 14:00 97.7 F 09/07/20 07:12 100 09/07/20 07:00 97.4 F L 09/07/20 04:00 97.9 F Weight Weight 182 lb 1.629 oz Most Recent Monitor Data Heart Rate from ECG 79 NIBP 109/65 NIBP BP-Mean 79 Respiration from ECG 14 SpO2 100 I&O: 09/06/20 09/07/20 09/08/20 06:59 06:59 06:59 Intake Total 2665 2578 Output Total 1027 4190 115 Balance 1640 -1612 -115 Result Diagrams: 09/07/20 13:57 09/07/20 13:57 Additional Labs: Accuchecks 09/07/20 09/07/20 09/07/20 14:04 13:18 11:38 POC Glucose 162 H 156 H 139 H 09/07/20 09/07/20 11:04 08:24 POC Glucose 129 H 94 Abnormal Lab Results - Last 48 hrs 09/05/20 18:08: Troponin I 0.050 H 09/05/20 22:44: APTT 114.0 H 09/05/20 22:44: Sodium 134 L, Potassium 2.6 L*, Carbon Dioxide 21 L, BUN 28 H, Creatinine 3.27 H, Calcium 7.4 L, Phosphorus 4.9 H, Albumin 3.2 L 09/05/20 22:44: Troponin I 0.057 H 09/06/20 01:54: Sodium 135 L, Potassium 3.0 L, BUN 28 H, Creatinine 3.02 H 09/06/20 01:54: B-Natriuretic Peptide 229.9 H 09/06/20 01:54: Troponin I 0.058 H 09/06/20 06:23: APTT 82.0 H 09/06/20 06:24: Potassium 3.1 L 09/06/20 11:01: Crossmatch See Detail 09/07/20 03:35: Chloride 111 H, Carbon Dioxide 21 L, Creatinine 1.79 H, Calcium 7.7 L 09/07/20 03:35: RBC 4.13 L, Hgb 12.6 L, Hct 37.7 L 09/07/20 03:35: PTH Intact 177.4 H 09/07/20 03:35: 25-OH Vitamin D Total 11.2 L 09/07/20 13:57: Chloride 113 H, Carbon Dioxide 18 L, Creatinine 1.61 H 09/07/20 13:57: WBC 23.7 H, RBC 4.22 L, Hgb 12.9 L, Hct 39.5 L, Neutrophils % (Manual) 77 H, Lymphocytes % (Manual) 4 L 09/07/20 13:57: PT 16.1 H 09/07/20 14:37: Bicarbonate Actual 20.6 L, ABG pH 7.26 L, ABG pCO2 47.2 H, ABG pO2 227.8 H, ABG O2 Sat (Measured) 99.4 H, ABG Base Excess -6.5 L, ABG Hematocrit 38.0 L, ABG Hemoglobin 12.8 L, ABG Oxyhemoglobin 98.8 H, Chloride 114 H Radiology Reviewed by me: Yes (CXR - no new infiltrate) EKG Reviewed by me: Yes (Sinus rhythm on telemetry) Hospitalist ROS - Review of Systems Respiratory: denies: cough, dry, shortness of breath, hemoptysis, SOB with excertion, pleuritic pain, sputum, wheezing, other Cardiovascular: denies: chest pain, palpitations, orthopnea, paroxysmal noc. dyspnea, edema, light headedness, other - Medication Medications: Active Medications Generic Name Dose Route Start Last Admin Trade Name Elyssa PRN Reason Stop Dose Admin Docusate Sodium 100 mg 09/07/20 09:26 09/07/20 11:35 Docusate 100 Mg Cap PO Not Given BID KATHIE Ergocalciferol 1.25 mg 09/07/20 12:00 09/07/20 13:24 Ergocalciferol 1.25 Mg(50,000 Units) Cap PO Not Given Q7D KATHIE Sodium Chloride 1,000 mls @ 100 mls/hr 09/07/20 09:26 09/07/20 13:24 Normal Saline 0.9% IV 1,000 mls .Q10H KATHIE Administration Insulin Human Regular 100 101 mls @ 0 mls/hr 09/07/20 10:45 09/07/20 14:31 units/ Sodium Chloride IVPB 101 mls INF KATHIE Administration Protocol As Directed Morphine Sulfate 2 mg 09/07/20 09:26 09/07/20 14:30 Morphine 2 Mg/Ml Vial SLOW IVP 2 mg Q15MIN PRN Administration Severe Pain (7-10) Hospitalist Exam Vitals: Vital Signs (12 hours) Temp Pulse Ox 09/07/20 14:43 100 09/07/20 14:00 97.7 F 09/07/20 07:12 100 09/07/20 07:00 97.4 F L 09/07/20 04:00 97.9 F Weight Weight 182 lb 1.629 oz Most Recent Monitor Data Heart Rate from ECG 79 NIBP 109/65 NIBP BP-Mean 79 Respiration from ECG 14 SpO2 100 General Appearance: awake alert Neck: supple, symmetric, no JVD Heart: RRR, no gallops, no rubs, normal peripheral pulses Respiratory: no wheezes, no rales, no ronchi, normal chest expansion Gastrointestinal: soft, non-distended, normal bowel sounds, no guarding, no rigidity Extremities: no cyanosis, no clubbing, no edema Neurological: no new deficit Psychiatric: normal affect, A&O x 3 Hosp A/P (1) NSTEMI (non-ST elevated myocardial infarction) Code(s): I21.4 - NON-ST ELEVATION (NSTEMI) MYOCARDIAL INFARCTION Status: Acute (2) Chronic kidney disease Code(s): N18.9 - CHRONIC KIDNEY DISEASE, UNSPECIFIED Status: Acute Qualifiers: Chronic kidney disease stage: stage 3 (moderate) (3) Coronary artery disease Code(s): I25.10 - ATHSCL HEART DISEASE OF [place] CORONARY ARTERY W/O ANG PCTRS Status: Acute (4) Hypertension Code(s): I10 - ESSENTIAL (PRIMARY) HYPERTENSION Status: Acute (5) Hypokalemia Code(s): E87.6 - HYPOKALEMIA Status: Acute - Plan DVT proph w/SCDs 64-year-old male with diabetes mellitus type 2, hypertension and cardiomyopathy currently under hospice presented to the hospital on 09/05 with chest discomfort. His work-up was consistent with non-ST elevation WA. He underwent coronary artery bypass grafting on 09/07. Non-ST elevation WA causing chest pain Status post CABG. Continue aspirin with statins. Pain control. Continue CCU monitoring Chronic systolic heart failure with ejection fraction 30 to 35% due to ischemic cardiomyopathy RAFI inhibitor on hold due to CKD AMINA on CKD stage III Nephrology input appreciated. Renal ultrasound negative for obstructive uropathy. Continue to monitor Electrolyte abnormality including hyponatremia, hypokalemia Recheck labs in a.m. Tobacco dependence Lifestyle modification emphasized Chronic pain syndrome Patient was on hospice prior to admission. He was on up to 180 mg of long- acting morphine along with approximately 6 to 10 mg of Valium on the daily basis. Will continue IV morphine as needed for pain control.
[2020-09-07] MEDS: Morphine ER 15 MG TAB PO SCH ×2 (15:41→20:31)
[2020-09-07] MEDS: HYDROcodone/Acetaminophen 5/325 mg Tablet PO PRN ×2 (15:45→21:42)
--- NOTE | 2020-09-07 16:11 | OP ---
DATE OF PROCEDURE: 09/07/2020 PROCEDURES PERFORMED: Coronary artery bypass grafting x2 with left internal mammary artery to the distal LAD and right internal mammary artery to the proximal PDA; 15 x 23 cm (from the cuff) tunneled right internal jugular dialysis catheter placement with ultrasonographic and fluoroscopic guidance. PREOPERATIVE DIAGNOSES: Coronary artery disease with ischemic cardiomyopathy and unstable angina; stage IV chronic renal insufficiency. POSTOPERATIVE DIAGNOSES: Coronary artery disease with ischemic cardiomyopathy and unstable angina; stage IV chronic renal insufficiency. ASSISTANTS: 1. Thomas Lopez MD. 2. Alexander Pineda MD. INDICATIONS: The patient is a 64-year-old man, who until very recently seldom went to the doctor, when he first presented with anasarca and diagnosed with a myocardial infarction, who self-referred to a public facility and was told that because of advanced renal insufficiency that he was not a candidate for intervention, and according to him, was enrolled in hospice and was being maintained on oral morphine to treat his angina. He recently presented here with angina and after discussing options that included intervention with its attendant risks of progressing to end-stage renal disease, he underwent catheterization, which demonstrated a very high-grade LAD lesion and a high-grade ostial LAD lesion. He is now taken to the operating room for surgical revascularization. FINDINGS: Tip of the catheter in the superior cava near the junction with the right atrium. Both ports easily aspirated and flushed. Pump time 61 minute. Cross-clamp time 35 minutes. Good quality IMAs with excellent flow. The distal LAD was a good quality 2 mm vessel. The proximal PDA was a good quality 1.5 mm vessel. DESCRIPTION OF PROCEDURE: After informed consent was obtained, the patient was taken to the operating room, placed in supine position on the operating table. After the induction of general anesthesia, the patient's greater saphenous veins were ultrasonographically mapped and marked. His neck and upper chest were prepped and draped in sterile fashion. His right internal jugular vein was identified ultrasonographically and cannulated. A guidewire was passed. An exit site for his catheter was selected and an incision was made on the right anterior chest and then an incision incorporating the wire exit site was made in the skin crease on the right neck and the subcutaneous tissue bluntly dilated. The dialysis catheter was passed through subcutaneous tunnel from the chest to the neck and then the vascular access tract was dilated and a sheath inserted. The catheter was placed through that sheath, which was stripped away. Under fluoroscopy, however, it could be appreciated that the catheter tip lays rather high in the vena cava and upon questioning the OR staff, there was a miscommunication with respect to nomenclature on the catheter designations under fluoroscopy, I measured down to the mid atrium up to the neck incision, it was roughly 24 cm. The longer catheters were either 23 cm from the cuff or 27 cm. I opted to go with a 23 cm. The catheter was delivered some from the neck wound and clamped. It was cut on the port side of the clamp and then a guidewire passed through it to allow for removal of the catheter while maintaining wire access, through which a second sheath and catheter could be passed. The longer catheter lays in the superior cava near the junction with the right atrium that easily aspirated and flushed was instilled intraluminally and both ports were capped well away from the exit site. The right subclavian vein was then accessed, and by the Seldinger technique, a triple-lumen central line was placed for secure venous access. All 3 ports easily aspirated and flushed. The lines were secured to the skin with suture, and neck incision was closed with a [id number] subcutaneous Vicryl and running 4-0 Vicryl subcuticular for the skin. Dermabond was applied to that neck wound and then the drapes were removed. The patient's torso, groins, and lower extremities were prepped and draped in sterile fashion. A median sternotomy was performed. The left internal mammary artery was mobilized as a skeletonized in-situ graft from the level of xiphoid to the level of the subclavian vein, controlling side branches with small hemoclips. The patient was given 10,000 units of heparin. The mammary was ligated and divided distally. There was good flow through the mammary and it dilated nicely when instilled intraluminally with papaverine solution. The mediastinal reflections of the pleura were mobilized and rents in the pleura were repaired with running Prolene. The right internal mammary artery was then mobilized in a similar fashion through an extrapleural exposure and the remaining heparin necessary for cardiopulmonary bypass was administered. The right mammary dilated nicely and appeared to be of adequate length to reach. The PDA has an in-situ graft. Both mammary beds were inspected for hemostasis. A [place] retractor was put into place. The pericardium was opened and marsupialized. The aorta was palpated and was soft. A double concentric pursestring of 2-0 Ethibond was placed in the ascending aorta within the pericardial reflection and a single pursestring was placed in the right atrial appendage. Aortic and venous cannulae were inserted and secured by their pursestrings. Cardiopulmonary bypass was instituted and the patient was systemically cooled. The heart was examined. The vessels to be bypassed were identified. A longitudinal incision was made anterior to the left phrenic nerve at the level of right ventricular outflow tract and a cruciate incision was made anterior to the right phrenic nerve, just anterior to the junction of the inferior cava with right atrium. An aortic cross-clamp was applied and cardioplegia was administered through an aortic root needle, when arrest had been achieved, the right internal mammary was oriented and passed through the cruciate pericardiotomy. The proximal PDA was opened with a [place] blade and Beny scissors and the mammary was anastomosed to it end-to-side with running 7-0 Prolene suture and tacked to the epicardium. Attention was then turned to the distal LAD. It was opened and grafted with the left internal mammary in a similar fashion. The aortic cross-clamp was removed. The anastomoses were inspected for hemostasis. A posterior pericardial drain and a right pleural drain were brought out through separate incisions and secured with suture. Right atrial and right ventricular temporary epicardial pacing wires were placed. The root needle was removed and its insertion site oversewn to achieve hemostasis. The patient was weaned from cardiopulmonary bypass. The aortic and venous cannulae removed and their pursestring secured. Protamine was administered. When hemostasis was adequate, an anterior mediastinal drain was placed and the pericardium was easily closed over it with running Vicryl. The mammary beds were again inspected for hemostasis. The cut surfaces of the sternum were treated with platelet rich GPS and vancomycin paste. The sternum was reapproximated with #7 stainless steel wires. The soft tissues were irrigated and treated with platelet poor GPS. The fascia was closed over the wires with running #1 Vicryl and the subcutaneous tissue was closed with running 2-0 Vicryl. The skin was closed with a running 3-0 Vicryl subcuticular suture and Dermabond. The wounds were dressed. The patient was awakened and extubated in the operating room and taken to the intensive care unit in stable condition. Job ID: [id number]
[2020-09-07] MEDS: Fentanyl 100 MCG/2 ML VIAL SLOW IVP PRN ×3 (16:57→21:57)
[2020-09-07] MEDS: Calcium Carbonate 600 MG + Vit D TAB PO SCH (16:59)
[2020-09-07] MEDS ORDERED: cloNIDine 0.1mg/24 Hour PATCH TD SCH (19:30)
[2020-09-07] MEDS ORDERED: Famotidine/PF 20 mg/2ml Vial SLOW IVP SCH (21:00)
[2020-09-08] MEDS: Fentanyl 100 MCG/2 ML VIAL SLOW IVP PRN ×5 (00:26→23:09)
[2020-09-08] MEDS: HYDROcodone/Acetaminophen 5/325 mg Tablet PO PRN ×4 (04:53→18:31)
[2020-09-08 05:00] LABS: #Basophils 0.1 thou/uL (0.0-0.2); #Lymphocytes 0.9 thou/uL (1.20-3.40); #Monocytes 0.4 thou/uL (0.11-0.59); #Neutrophils 11.7 thou/uL (1.40-6.50); %Basophils 0.5 % (0.0-1.0); %Eosinophils 0.2 % (0.0-10.0); %Lymphocytes 6.6 % (21.0-51.0); %Monocytes 3.3 % (0.0-10.0); %Neutrophils 89.4 % (42.0-75.0); Hemoglobin 11.6 g/dL (14.0-18.0); Mean Corpuscular HGB CONC 32.8 g/dL (32.0-36.0); Mean Corpuscular Hemoglobin 30.4 pg (27.0-31.0); Mean Corpuscular Volume 92.8 fL (78.0-98.0); Mean Platelet Volume 8.9 fL (7.4-10.4); Platelet Count 233 thou/uL (130-400); RBC Distribution Width 12.7 % (11.5-14.5); Red Blood Cell (RBC) Count 3.82 mill/uL (4.70-6.10)
[2020-09-08 05:16] LABS: Anion Gap 17 mmol/L (10-20); BUN (Urea Nitrogen) 21 mg/dL (8.4-25.7); Calc. Creatinine Clearance 54 mL/min (70-130); Carbon Dioxide 19 mmol/L (23-31); Chloride 108 mmol/L (98-107); Glucose 126 mg/dL (80-115); Magnesium 1.8 mg/dL (1.6-2.6); Potassium 4.2 mmol/L (3.5-5.1); Sodium 140 mmol/L (136-145)
[2020-09-08] MEDS: Sodium Chloride 0.9% 1,000 ML IV SCH (06:33)
[2020-09-08] MEDS: Docusate 100 MG CAP PO SCH ×2 (08:30→21:07)
[2020-09-08] MEDS: Calcium Carbonate 600 MG + Vit D TAB PO SCH ×2 (08:30→16:29)
[2020-09-08] MEDS: Multivit, Therapeutic 1 TAB PO SCH (08:30)
[2020-09-08] MEDS: Morphine ER 15 MG TAB PO SCH ×3 (08:30→21:45)
--- NOTE | 2020-09-08 09:57 | PDOC.CPN ---
- Subjective Date: 09/08/20 Time: 12:38 Interval history: Main compaint of having CT in place No other issues - Objective Allergies/Adverse Reactions: Allergies Allergy/AdvReac Type Severity Reaction Status Date / Time No Known Allergies Allergy Unverified 09/05/20 12:12 Visit Medications: Current Medications Acetaminophen (Acetaminophen 325 Mg Tab) 650 mg PO Q6H PRN PRN Reason: Headache/Fever Or Mild Pain Last Admin: 09/08/20 03:00 Dose: 650 mg Documented by: Hydrocodone Bitart/Acetaminophen (Hydrocodone/Acetaminophen 5/325 Mg Tablet) 1 tab PO Q4H PRN PRN Reason: Moderate Pain (4-6) Hydrocodone Bitart/Acetaminophen (Hydrocodone/Acetaminophen 5/325 Mg Tablet) 2 tab PO Q4H PRN PRN Reason: Severe Pain (7-10) Last Admin: 09/08/20 09:41 Dose: 2 tab Documented by: Al Hydroxide/Mg Hydroxide (Mag-Al 1200 Mg/1200 Mg/30 Ml Udcup) 30 ml PO Q4H PRN PRN Reason: Indigestion Aspirin (Aspirin 325 Mg Enteric Coated Tablet) 325 mg PO DAILY [facility] Atorvastatin Calcium (Atorvastatin Calcium 20 Mg Tab) 20 mg PO HS [facility] Bisacodyl (Bisacodyl 5 Mg Tab) 10 mg PO Q12H PRN PRN Reason: Constipation Bisacodyl (Bisacodyl 10 Mg Supp) 10 mg AR Q12H PRN PRN Reason: Constipation Calcium/Vitamin D (Calcium Carbonate 600 Mg + Vit D Tab) 1 tab PO BID[facility] Last Admin: 09/08/20 08:30 Dose: 1 tab Documented by: Clonidine (Clonidine 0.1mg/24 Hour Patch) 0.1 mg TD Q7DAYS [facility] Docusate Sodium (Docusate 100 Mg Cap) 100 mg PO BID [facility] Last Admin: 09/08/20 08:30 Dose: 100 mg Documented by: Ergocalciferol (Ergocalciferol 1.25 Mg(50,000 Units) Cap) 1.25 mg PO Q7D [facility] Last Admin: 09/07/20 13:24 Dose: Not Given Documented by: Fentanyl (Fentanyl 100 Mcg/2 Ml Vial) 25 mcg SLOW IVP Q2H PRN PRN Reason: Moderate Pain (4-6) Stop: 09/09/20 07:59 Fentanyl (Fentanyl 100 Mcg/2 Ml Vial) 50 mcg SLOW IVP Q2H PRN PRN Reason: Severe Pain (7-10) Stop: 09/09/20 07:59 Last Admin: 09/08/20 06:20 Dose: 50 mcg Documented by: Glucagon (Glucagon 1 Mg/Ml Vial) 1 mg SC PRN PRN PRN Reason: PER HYPOGLYCEMIC PROTOCOL Guaifenesin/Dextromethorphan (Guaifenesin Dm 100-10/5 Ml Udcup) 15 ml PO Q4H PRN PRN Reason: Cough Last Admin: 09/08/20 03:24 Dose: 15 ml Documented by: Hydralazine HCl (Hydralazine 20 Mg/Ml Vial) 10 mg SLOW IVP Q6H PRN PRN Reason: To Maintain SBP< 140mmHG Metoprolol Tartrate (Metoprolol Tartrate 25 Mg Tab) 12.5 mg PO BID [facility] Morphine Sulfate (Morphine 2 Mg/Ml Vial) 2 mg SLOW IVP Q15MIN PRN PRN Reason: Severe Pain (7-10) Last Admin: 09/07/20 14:30 Dose: 2 mg Documented by: Morphine Sulfate (Morphine Er 15 Mg Tab) 15 mg PO TID [facility] Last Admin: 09/08/20 08:30 Dose: 15 mg Documented by: Multivitamins (Multivit, Therapeutic 1 Tab) 1 tab PO DAILY [facility] Last Admin: 09/08/20 08:30 Dose: 1 tab Documented by: Ondansetron HCl (Ondansetron Pf 4 Mg/2 Ml Vial) 4 mg IVP Q6H PRN PRN Reason: Nausea/Vomiting Potassium Chloride (Potassium Chloride 20 Meq/100 Ml Premix Bag) 20 meq IVPB PRN PRN PRN Reason: K level </= 4.0 Promethazine HCl (Promethazine Hcl 25 Mg/Ml Vial) 6.25 mg IM Q4H PRN PRN Reason: Nausea/Vomiting Vital Signs & Weight: Vital Signs Temp Pulse Ox 09/08/20 07:50 100 09/08/20 07:00 97.6 F 09/08/20 00:00 97.9 F Weight 182 lb 1.629 oz - Physical Exam General: alert & oriented x3 HEENT: normocephaly Neck: supple neck Cardiac: no murmur, regular rate, regular rhythm Lungs: normal exam - Labs Result Diagrams: 09/08/20 03:28 09/08/20 03:28 Troponin/CKMB CK-MB (CK-2) 1.6 ng/mL (0-6.6) 09/06/20 01:54 Troponin I 0.058 ng/mL (< 0.028) H 09/06/20 01:54 - Assessment/Plan Assessment/Plan: Severe CAD s/p CABG RI Doing well PVC's noted in bigeminay pattern Recently started On BB May need to increase BB IS and PT CT recommendations per CV surgery
--- NOTE | 2020-09-08 10:30 | RAD ---
PORTABLE CHEST: HISTORY: Postop open heart surgery. COMPARISON: Prior day's exam. FINDINGS: Heart size is within normal limits. There are postop sternotomy changes. Right-sided chest tube is unchanged in position. Right subclavian line and HemoSplit catheter are also stable in appearance. IMPRESSION: Stable exam. POS: ZEE
--- NOTE | 2020-09-08 12:05 | EKG ---
Test Reason : POST CABG Blood Pressure : / mmHG Vent. Rate : 073 BPM Atrial Rate : 073 BPM P-R Int : 148 ms QRS Dur : 100 ms QT Int : 436 ms P-R-T Axes : 081 066 064 degrees QTc Int : 480 ms Sinus rhythm with occasional Premature ventricular complexes Prolonged QT Abnormal ECG When compared with ECG of 06-SEP-2020 00:21, No significant change was found Confirmed by ALMA FUNG, DR. SAnastacia ([id number]) on 09/08/2020 12:04:48 PM Referred By: LEE Confirmed By:DR. Kennedy MARQUEZ MD
--- NOTE | 2020-09-08 16:03 | PDOC.HOSPP ---
- Subjective Encounter Date: 09/08/20 Encounter Time: 08:00 Subjective: c/o pain at operated site is sitting in chair, has chest tubes - Objective Vital Signs & Weight: Vital Signs (12 hours) Temp Pulse Ox 09/08/20 11:00 97.8 F 09/08/20 07:50 100 09/08/20 07:00 97.6 F Weight Weight 182 lb 1.629 oz Most Recent Monitor Data Heart Rate from ECG 97 NIBP 140/93 NIBP BP-Mean 108 Respiration from ECG 25 SpO2 100 I&O: 09/07/20 09/08/20 09/09/20 06:59 06:59 06:59 Intake Total 2578 3218.0 1095 Output Total 4190 1365 315 Balance -1612 1853.0 780 Result Diagrams: 09/08/20 03:28 09/08/20 03:28 Additional Labs: Accuchecks 09/08/20 09/08/20 09/08/20 06:32 05:16 03:31 POC Glucose 122 H 146 H 121 H 09/08/20 09/08/20 09/07/20 02:20 00:18 22:32 POC Glucose 119 H 119 H 119 H 09/07/20 09/07/20 09/07/20 20:39 19:22 18:07 POC Glucose 124 H 138 H 142 H 09/07/20 09/07/20 17:13 16:04 POC Glucose 140 H 136 H Hospitalist ROS - Medication Medications: Active Medications Generic Name Dose Route Start Last Admin Trade Name Freq PRN Reason Stop Dose Admin Acetaminophen 650 mg 09/07/20 09:26 09/08/20 03:00 Acetaminophen 325 Mg Tab PO 650 mg Q6H PRN Administration Headache/Fever Or Mild Pain Hydrocodone Bitart/Acetaminophen 2 tab 09/07/20 09:26 09/08/20 14:08 Hydrocodone/Acetaminophen 5/325 Mg Tablet PO 2 tab Q4H PRN Administration Severe Pain (7-10) Calcium/Vitamin D 1 tab 09/07/20 17:00 09/08/20 08:30 Calcium Carbonate 600 Mg + Vit D Tab PO 1 tab BID-WM KATHIE Administration Docusate Sodium 100 mg 09/07/20 09:26 09/08/20 08:30 Docusate 100 Mg Cap PO 100 mg BID KATHIE Administration Ergocalciferol 1.25 mg 09/07/20 12:00 09/07/20 13:24 Ergocalciferol 1.25 Mg(50,000 Units) Cap PO Not Given Q7D [facility] Fentanyl 50 mcg 09/07/20 09:26 09/08/20 10:42 Fentanyl 100 Mcg/2 Ml Vial SLOW IVP 09/09/20 07:59 50 mcg Q2H PRN Administration Severe Pain (7-10) Guaifenesin/Dextromethorphan 15 ml 09/07/20 09:26 09/08/20 03:24 Guaifenesin Dm 100-10/5 Ml Udcup PO 15 ml Q4H PRN Administration Cough Morphine Sulfate 2 mg 09/07/20 09:26 09/07/20 14:30 Morphine 2 Mg/Ml Vial SLOW IVP 2 mg Q15MIN PRN Administration Severe Pain (7-10) Morphine Sulfate 15 mg 09/07/20 15:00 09/08/20 15:42 Morphine Er 15 Mg Tab PO 15 mg TID KATHIE Administration Multivitamins 1 tab 09/08/20 09:00 09/08/20 08:30 Multivit, Therapeutic 1 Tab PO 1 tab DAILY KATHIE Administration Hospitalist Exam Vitals: Vital Signs (12 hours) Temp Pulse Ox 09/08/20 11:00 97.8 F 09/08/20 07:50 100 09/08/20 07:00 97.6 F Weight Weight 182 lb 1.629 oz Most Recent Monitor Data Heart Rate from ECG 97 NIBP 140/93 NIBP BP-Mean 108 Respiration from ECG 25 SpO2 100 General Appearance: awake alert Eye: PERRL, anicteric sclera ENT: no oropharyngeal lesions, moist mucosa Neck: supple, no JVD Heart: RRR, no murmur Respiratory: no wheezes, no rales Respiratory - other findings: chest tubes+ Gastrointestinal: soft, non-tender, non-distended, normal bowel sounds Extremities: no cyanosis, no edema Neurological: cranial nerve grossly intact, no focal deficits Psychiatric: A&O x 3 Hosp A/P (1) S/P CABG x 2 Code(s): Z95.1 - PRESENCE OF AORTOCORONARY BYPASS GRAFT Status: Acute (2) COPD (chronic obstructive pulmonary disease) Status: Chronic Qualifiers: COPD type: chronic bronchitis Chronic bronchitis type: unspecified Qualified Code(s): J42 - Unspecified chronic bronchitis (3) Chronic kidney disease Code(s): N18.9 - CHRONIC KIDNEY DISEASE, UNSPECIFIED Status: Chronic Qualifiers: Chronic kidney disease stage: stage 3 (moderate) (4) Coronary artery disease Code(s): I25.10 - ATHSCL HEART DISEASE OF [place] CORONARY ARTERY W/O ANG PCTRS Status: Chronic Qualifiers: Coronary Disease-Associated Artery/Lesion type: bypass graft [place] vs. transplanted heart: [place] heart Associated angina: without angina Qualified Code(s): I25.810 - Atherosclerosis of coronary artery bypass graft(s) without angina pectoris (5) Hypertension Code(s): I10 - ESSENTIAL (PRIMARY) HYPERTENSION Status: Chronic Qualifiers: Hypertension type: essential hypertension Qualified Code(s): I10 - Essential (primary) hypertension (6) NSTEMI (non-ST elevated myocardial infarction) Code(s): I21.4 - NON-ST ELEVATION (NSTEMI) MYOCARDIAL INFARCTION Status: Acute (7) Chronic pain syndrome Code(s): G89.4 - CHRONIC PAIN SYNDROME Status: Chronic (8) Ischemic cardiomyopathy Code(s): I25.5 - ISCHEMIC CARDIOMYOPATHY Status: Chronic - Plan post op cabg is recovering had singletary to lad and right int mammary to prox pda on 09/07 on asp, lipitor, lopressor, MS contin tid, fentanyl prn iv, clonidine 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
--- NOTE | 2020-09-08 17:09 | PRG ---
DATE OF SERVICE: 09/08/2020 SUBJECTIVE: Patient was seen and examined at bedside and overnight events noted. Patient denies any shortness of breath or chest pain or palpitation. No history of nausea or vomiting or diarrhea or fever or chills or cramps. OBJECTIVE: GENERAL: This is well-built male in no acute distress. VITAL SIGNS: Temperature 97.8. Pulse 91. Respiratory rate . Blood pressure 149/68. HEENT: Atraumatic, normocephalic. Oral mucosa is moist. NECK: Supple. CARDIOVASCULAR: S1, S2 heard. Rate and rhythm regular. RESPIRATORY: Clear to auscultation. GASTROINTESTINAL: Abdomen is soft. MUSCULOSKELETAL: No tenderness. No edema. DERMATOLOGIC: No skin rash. NEUROLOGIC: Alert and awake and oriented x3. No focal neurologic deficits. Moving all the extremities. PSYCHIATRIC: Mood and affect normal. LABORATORY DATA: Potassium 4.2, BUN is 21, creatinine is 1.7. ASSESSMENT AND PLAN: 1. Acute kidney injury on chronic kidney stage 3. Renal function is stable. 2. Cardiorenal syndrome. 3. Hyponatremia. 4. Hypokalemia. 5. Edema. 6. Hypertension. 7. Anemia of chronic disease. 8. Vitamin D deficiency. Continue vitamin D. 9. Secondary hyperparathyroidism. 10. Given vitamin D and continue to monitor renal function. IV fluids if tolerated. Job ID: [id number]
--- NOTE | 2020-09-08 18:13 | EKG ---
Test Reason : CP Blood Pressure : / mmHG Vent. Rate : 075 BPM Atrial Rate : 075 BPM P-R Int : 148 ms QRS Dur : 106 ms QT Int : 448 ms P-R-T Axes : 000 036 102 degrees QTc Int : 500 ms Sinus rhythm with Premature supraventricular complexes with frequent Premature ventricular complexes Prolonged QT Abnormal ECG Incomplete left bundle branch block #1 Confirmed by TAO Figueroa, PREMA ([id number]), rewrite editor GUILHERME ISSA ([id number] on 09/08/2020 6:13:37 PM Referred By: Confirmed By:PREMA BURGER M.D.
[2020-09-08] MEDS: Atorvastatin Calcium 20 MG TAB PO SCH (21:08)
[2020-09-08] MEDS: Metoprolol Tartrate 25 MG TAB PO SCH (21:08)
[2020-09-09] MEDS: Fentanyl 100 MCG/2 ML VIAL SLOW IVP PRN ×2 (03:30→07:24)
[2020-09-09 04:34] LABS: #Eosinphils 0.2 thou/uL (0.0-0.7); #Lymphocytes 2.6 thou/uL (1.20-3.40); #Monocytes 0.8 thou/uL (0.11-0.59); #Neutrophils 10.2 thou/uL (1.40-6.50); %Basophils 0.2 % (0.0-1.0); %Eosinophils 1.1 % (0.0-10.0); %Lymphocytes 18.7 % (21.0-51.0); %Monocytes 5.5 % (0.0-10.0); %Neutrophils 74.4 % (42.0-75.0); Hemoglobin 11.7 g/dL (14.0-18.0); Mean Corpuscular HGB CONC 32.7 g/dL (32.0-36.0); Mean Corpuscular Hemoglobin 30.4 pg (27.0-31.0); Mean Corpuscular Volume 92.8 fL (78.0-98.0); Mean Platelet Volume 8.5 fL (7.4-10.4); Platelet Count 228 thou/uL (130-400); RBC Distribution Width 12.7 % (11.5-14.5); Red Blood Cell (RBC) Count 3.85 mill/uL (4.70-6.10); White Blood Cell (WBC) Count 13.8 thou/uL (4.8-10.8)
[2020-09-09 05:08] LABS: Anion Gap 11 mmol/L (10-20); BUN (Urea Nitrogen) 24 mg/dL (8.4-25.7); Calc. Creatinine Clearance 49 mL/min (70-130); Calcium 8.7 mg/dL (7.8-10.44); Carbon Dioxide 27 mmol/L (23-31); Chloride 103 mmol/L (98-107); Glucose 109 mg/dL (80-115); Magnesium 1.8 mg/dL (1.6-2.6); Potassium 3.6 mmol/L (3.5-5.1); Sodium 137 mmol/L (136-145)
[2020-09-09] MEDS: HYDROcodone/Acetaminophen 5/325 mg Tablet PO PRN ×3 (05:42→17:22)
[2020-09-09] MEDS: Metoprolol Tartrate 25 MG TAB PO SCH ×2 (08:42→20:37)
[2020-09-09] MEDS: Docusate 100 MG CAP PO SCH ×2 (08:42→20:37)
[2020-09-09] MEDS: Calcium Carbonate 600 MG + Vit D TAB PO SCH ×2 (08:42→17:22)
[2020-09-09] MEDS: Multivit, Therapeutic 1 TAB PO SCH (08:43)
[2020-09-09] MEDS: Morphine ER 15 MG TAB PO SCH ×3 (08:43→20:35)
[2020-09-09] MEDS ORDERED: Aspirin 325 mg Enteric Coated Tablet PO SCH (09:00)
--- NOTE | 2020-09-09 09:47 | PDOC.CPN ---
- Subjective Date: 09/09/20 Time: 11:54 Interval history: No changes overnight - Objective Allergies/Adverse Reactions: Allergies Allergy/AdvReac Type Severity Reaction Status Date / Time No Known Allergies Allergy Unverified 09/05/20 12:12 Visit Medications: Current Medications Acetaminophen (Acetaminophen 325 Mg Tab) 650 mg PO Q6H PRN PRN Reason: Headache/Fever Or Mild Pain Last Admin: 09/08/20 03:00 Dose: 650 mg Documented by: Hydrocodone Bitart/Acetaminophen (Hydrocodone/Acetaminophen 5/325 Mg Tablet) 1 tab PO Q4H PRN PRN Reason: Moderate Pain (4-6) Hydrocodone Bitart/Acetaminophen (Hydrocodone/Acetaminophen 5/325 Mg Tablet) 2 tab PO Q4H PRN PRN Reason: Severe Pain (7-10) Last Admin: 09/09/20 05:42 Dose: 2 tab Documented by: Al Hydroxide/Mg Hydroxide (Mag-Al 1200 Mg/1200 Mg/30 Ml Udcup) 30 ml PO Q4H PRN PRN Reason: Indigestion Aspirin (Aspirin 325 Mg Enteric Coated Tablet) 325 mg PO DAILY [facility] Last Admin: 09/09/20 08:42 Dose: 325 mg Documented by: Atorvastatin Calcium (Atorvastatin Calcium 20 Mg Tab) 20 mg PO [facility] Last Admin: 09/08/20 21:08 Dose: 20 mg Documented by: Bisacodyl (Bisacodyl 5 Mg Tab) 10 mg PO Q12H PRN PRN Reason: Constipation Bisacodyl (Bisacodyl 10 Mg Supp) 10 mg CO Q12H PRN PRN Reason: Constipation Calcium/Vitamin D (Calcium Carbonate 600 Mg + Vit D Tab) 1 tab PO BID-[facility] Last Admin: 09/09/20 08:42 Dose: 1 tab Documented by: Clonidine (Clonidine 0.1mg/24 Hour Patch) 0.1 mg TD Q7DAYS [facility] Docusate Sodium (Docusate 100 Mg Cap) 100 mg PO BID [facility] Last Admin: 09/09/20 08:42 Dose: 100 mg Documented by: Ergocalciferol (Ergocalciferol 1.25 Mg(50,000 Units) Cap) 1.25 mg PO Q7D [facility] Last Admin: 09/07/20 13:24 Dose: Not Given Documented by: Glucagon (Glucagon 1 Mg/Ml Vial) 1 mg SC PRN PRN PRN Reason: PER HYPOGLYCEMIC PROTOCOL Guaifenesin/Dextromethorphan (Guaifenesin Dm 100-10/5 Ml Udcup) 15 ml PO Q4H PRN PRN Reason: Cough Last Admin: 09/08/20 03:24 Dose: 15 ml Documented by: Hydralazine HCl (Hydralazine 20 Mg/Ml Vial) 10 mg SLOW IVP Q6H PRN PRN Reason: To Maintain SBP< 140mmHG Last Admin: 09/08/20 18:04 Dose: 10 mg Documented by: Metoprolol Tartrate (Metoprolol Tartrate 25 Mg Tab) 12.5 mg PO BID [facility] Last Admin: 09/09/20 08:42 Dose: 12.5 mg Documented by: Morphine Sulfate (Morphine 2 Mg/Ml Vial) 2 mg SLOW IVP Q15MIN PRN PRN Reason: Severe Pain (7-10) Last Admin: 09/07/20 14:30 Dose: 2 mg Documented by: Morphine Sulfate (Morphine Er 15 Mg Tab) 15 mg PO TID [facility] Last Admin: 09/09/20 08:43 Dose: 15 mg Documented by: Multivitamins (Multivit, Therapeutic 1 Tab) 1 tab PO DAILY [facility] Last Admin: 09/09/20 08:43 Dose: 1 tab Documented by: Ondansetron HCl (Ondansetron Pf 4 Mg/2 Ml Vial) 4 mg IVP Q6H PRN PRN Reason: Nausea/Vomiting Potassium Chloride (Potassium Chloride 20 Meq/100 Ml Premix Bag) 20 meq IVPB PRN PRN PRN Reason: K level </= 4.0 Promethazine HCl (Promethazine Hcl 25 Mg/Ml Vial) 6.25 mg IM Q4H PRN PRN Reason: Nausea/Vomiting Vital Signs & Weight: Vital Signs Temp 09/09/20 07:00 97.9 F 09/09/20 04:00 98.3 F 09/09/20 00:00 98.3 F Weight 177 lb 4.8 oz - Physical Exam General: alert & oriented x3 Neck: supple neck Cardiac: no murmur, regular rate Lungs: normal exam Neuro: grossly intact - Labs Result Diagrams: 09/09/20 03:45 09/09/20 03:45 Troponin/CKMB CK-MB (CK-2) 1.6 ng/mL (0-6.6) 09/06/20 01:54 Troponin I 0.058 ng/mL (< 0.028) H 09/06/20 01:54 - Assessment/Plan Assessment/Plan: Severe CAD s/p CABG RI 09/09/2020 No changes doing well PT and IS On BB, statin ASA 09/08/2020 Doing well PVC's noted in bigeminay pattern Recently started On BB May need to increase BB IS and PT CT recommendations per CV surgery
[2020-09-09] MEDS ORDERED: Mag-Al 1200 mg/1200 mg/30 ML UDCUP PO PRN (12:11)
[2020-09-09] MEDS ORDERED: Bisacodyl 10 MG SUPP PR PRN (12:11)
[2020-09-09] MEDS ORDERED: Bisacodyl 5 MG TAB PO PRN (12:11)
[2020-09-09] MEDS ORDERED: Furosemide 40 MG/4 ML VIAL SLOW IVP SCH (12:11)
[2020-09-09] MEDS ORDERED: Nitroglycerin 0.4 MG TAB (25 Tab Bottle) SL PRN (12:11)
[2020-09-09] MEDS ORDERED: diphenhydrAMINE 25 MG CAP PO PRN (12:11)
[2020-09-09] MEDS ORDERED: Zolpidem Tartrate 5 MG TAB PO PRN (12:11)
[2020-09-09] MEDS ORDERED: Mineral Oil ENEMA PR PRN (12:11)
[2020-09-09] MEDS ORDERED: Guaifenesin DM 100-10/5 ML UDCUP PO PRN (12:11)
--- NOTE | 2020-09-09 13:24 | PRG ---
DATE OF SERVICE: 09/09/2020 SUBJECTIVE: Patient was seen and examined at bedside and overnight events noted. Patient denies any shortness of breath or chest pain or palpitation. No history of nausea or vomiting or diarrhea or fever or chills or cramps. OBJECTIVE: GENERAL: This is a well-built male, in no apparent distress. VITAL SIGNS: Temperature 97.8, pulse 89, respiratory rate 18, blood pressure 144/99. HEENT: Atraumatic, normocephalic. Oral mucosa is moist. NECK: Supple. CARDIOVASCULAR: S1, S2 heard. Rate and rhythm regular. RESPIRATORY: Clear to auscultation. GASTROINTESTINAL: Abdomen is soft. MUSCULOSKELETAL: No tenderness. No edema. DERMATOLOGIC: No skin rash. NEUROLOGIC: Alert and awake and oriented x3. No focal neurologic deficits. Moving all the extremities. PSYCHIATRIC: Mood and affect normal. LABORATORY DATA: Potassium 3.6, BUN is 24, creatinine is 1.8. ASSESSMENT AND PLAN: 1. Acute kidney injury on chronic kidney stage 3. Labs are stable. 2. Cardiorenal syndrome. 3. Hyponatremia. 4. Hypokalemia. 5. Hypertension. 6. Vitamin D deficiency, secondary hyperparathyroidism. 7. Renal function is stable. I will sign off. Please call back with any questions. Job ID: [id number]
[2020-09-09] MEDS: Morphine 2 MG/ML VIAL SLOW IVP PRN (14:49)
--- NOTE | 2020-09-09 16:00 | PDOC.HOSPP ---
- Subjective Encounter Date: 09/09/20 Encounter Time: 08:15 Subjective: no sob, doing well has pain but better this morning - Objective Vital Signs & Weight: Vital Signs (12 hours) Temp Pulse Pulse BP BP Pulse Ox Pulse Ox 09/09/20 15:04 93 98 150/99 H 150/99 H 100 09/09/20 15:00 97.9 F 09/09/20 11:00 97.8 F 09/09/20 08:00 100 09/09/20 07:00 97.9 F 09/09/20 04:00 98.3 F Pulse Ox 09/09/20 15:04 100 09/09/20 15:00 09/09/20 11:00 09/09/20 08:00 09/09/20 07:00 09/09/20 04:00 Weight Weight 177 lb 4.8 oz Most Recent Monitor Data Heart Rate from ECG 93 NIBP 145/84 NIBP BP-Mean 104 Respiration from ECG 21 SpO2 97 I&O: 09/08/20 09/09/20 09/10/20 06:59 06:59 06:59 Intake Total 3218.0 1895 1140 Output Total 1365 1340 815 Balance 1853.0 555 325 Result Diagrams: 09/09/20 03:45 09/09/20 03:45 Hospitalist ROS - Medication Medications: Active Medications Generic Name Dose Route Start Last Admin Trade Name Freq PRN Reason Stop Dose Admin Acetaminophen 650 mg 09/07/20 09:26 09/08/20 03:00 Acetaminophen 325 Mg Tab PO 650 mg Q6H PRN Administration Headache/Fever Or Mild Pain Hydrocodone Bitart/Acetaminophen 2 tab 09/07/20 09:26 09/09/20 12:24 Hydrocodone/Acetaminophen 5/325 Mg Tablet PO 2 tab Q4H PRN Administration Severe Pain (7-10) Atorvastatin Calcium 20 mg 09/08/20 21:00 09/08/20 21:08 Atorvastatin Calcium 20 Mg Tab PO 20 mg HS KATHIE Administration Calcium/Vitamin D 1 tab 09/07/20 17:00 09/09/20 08:42 Calcium Carbonate 600 Mg + Vit D Tab PO 1 tab BID-WM KATHIE Administration Docusate Sodium 100 mg 09/07/20 09:26 09/09/20 08:42 Docusate 100 Mg Cap PO 100 mg BID KATHIE Administration Ergocalciferol 1.25 mg 09/07/20 12:00 09/07/20 13:24 Ergocalciferol 1.25 Mg(50,000 Units) Cap PO Not Given Q7D [facility] Furosemide 40 mg 09/09/20 12:11 09/09/20 12:25 Furosemide 40 Mg/4 Ml Vial SLOW IVP 09/09/20 16:00 40 mg NOW KATHIE Administration Hydralazine HCl 10 mg 09/07/20 09:26 09/08/20 18:04 Hydralazine 20 Mg/Ml Vial SLOW IVP 10 mg Q6H PRN Administration To Maintain SBP< 140mmHG Metoprolol Tartrate 12.5 mg 09/08/20 21:00 09/09/20 08:42 Metoprolol Tartrate 25 Mg Tab PO 12.5 mg BID [facility] Administration Morphine Sulfate 2 mg 09/07/20 09:26 09/09/20 14:49 Morphine 2 Mg/Ml Vial SLOW IVP 2 mg Q15MIN PRN Administration Severe Pain (7-10) Morphine Sulfate 15 mg 09/07/20 15:00 09/09/20 15:28 Morphine Er 15 Mg Tab PO 15 mg TID [facility] Administration Multivitamins 1 tab 09/08/20 09:00 09/09/20 08:43 Multivit, Therapeutic 1 Tab PO 1 tab DAILY [facility] Administration Hospitalist Exam Vitals: Vital Signs (12 hours) Temp Pulse Pulse BP BP Pulse Ox Pulse Ox 09/09/20 15:04 93 98 150/99 H 150/99 H 100 09/09/20 15:00 97.9 F 09/09/20 11:00 97.8 F 09/09/20 08:00 100 09/09/20 07:00 97.9 F 09/09/20 04:00 98.3 F Pulse Ox 09/09/20 15:04 100 09/09/20 15:00 09/09/20 11:00 09/09/20 08:00 09/09/20 07:00 09/09/20 04:00 Weight Weight 177 lb 4.8 oz Most Recent Monitor Data Heart Rate from ECG 93 NIBP 145/84 NIBP BP-Mean 104 Respiration from ECG 21 SpO2 97 General Appearance: awake alert Eye: PERRL, anicteric sclera ENT: no oropharyngeal lesions, moist mucosa Neck: supple, no JVD Heart: RRR, no murmur Respiratory: no wheezes, no rales Respiratory - other findings: chest tubes Gastrointestinal: soft, non-tender, non-distended, normal bowel sounds Extremities: no cyanosis, no edema Neurological: cranial nerve grossly intact, no focal deficits Hosp A/P (1) S/P CABG x 2 Code(s): Z95.1 - PRESENCE OF AORTOCORONARY BYPASS GRAFT Status: Acute (2) COPD (chronic obstructive pulmonary disease) Status: Chronic Qualifiers: COPD type: chronic bronchitis Chronic bronchitis type: unspecified Qualified Code(s): J42 - Unspecified chronic bronchitis (3) Chronic kidney disease Code(s): N18.9 - CHRONIC KIDNEY DISEASE, UNSPECIFIED Status: Chronic Qualifiers: Chronic kidney disease stage: stage 3 (moderate) (4) Coronary artery disease Code(s): I25.10 - ATHSCL HEART DISEASE OF [place] CORONARY ARTERY W/O ANG PCTRS Status: Chronic Qualifiers: Coronary Disease-Associated Artery/Lesion type: bypass graft [place] vs. transplanted heart: [place] heart Associated angina: without angina Qualified Code(s): I25.810 - Atherosclerosis of coronary artery bypass graft(s) without angina pectoris (5) Hypertension Code(s): I10 - ESSENTIAL (PRIMARY) HYPERTENSION Status: Chronic Qualifiers: Hypertension type: essential hypertension Qualified Code(s): I10 - Essential (primary) hypertension (6) NSTEMI (non-ST elevated myocardial infarction) Code(s): I21.4 - NON-ST ELEVATION (NSTEMI) MYOCARDIAL INFARCTION Status: Acute (7) Chronic pain syndrome Code(s): G89.4 - CHRONIC PAIN SYNDROME Status: Chronic (8) Ischemic cardiomyopathy Code(s): I25.5 - ISCHEMIC CARDIOMYOPATHY Status: Chronic - Plan post op cabg is recovering well had singletary to lad and right int mammary to prox pda on 09/07 on asp, lipitor, lopressor, MS contin tid, fentanyl prn iv, clonidine 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
[2020-09-09] MEDS: Atorvastatin Calcium 20 MG TAB PO SCH (20:36)
[2020-09-10] MEDS: HYDROcodone/Acetaminophen 5/325 mg Tablet PO PRN ×6 (01:02→23:19)
[2020-09-10] MEDS: Metoprolol Tartrate 25 MG TAB PO SCH ×3 (08:26→19:53)
[2020-09-10] MEDS: Multivit, Therapeutic 1 TAB PO SCH (08:27)
[2020-09-10] MEDS: Morphine ER 15 MG TAB PO SCH ×3 (08:27→19:53)
[2020-09-10] MEDS: Docusate 100 MG CAP PO SCH ×2 (08:28→19:50)
[2020-09-10] MEDS: Aspirin 325 mg Enteric Coated Tablet PO SCH (08:28)
[2020-09-10] MEDS: Calcium Carbonate 600 MG + Vit D TAB PO SCH ×2 (08:28→17:11)
[2020-09-10] MEDS: hydrALAZINE 25 MG TAB PO SCH ×2 (10:50→19:50)
--- NOTE | 2020-09-10 13:27 | PRG ---
DATE OF SERVICE: 09/10/2020 SUBJECTIVE: Mr. Kennedy is sitting up in a chair, feels well. OBJECTIVE: VITAL SIGNS: Blood pressure is 119/75, pulse 90 and it is sinus with PVCs and PACs. LUNGS: Clear. CARDIAC: Normal S1 and normal S2. ABDOMEN: Soft and nontender. ASSESSMENT: 1. Depressed left ventricular function. 2. Recent bypass surgery. 3. Renal failure, actually is improved, which is really rather amazing considering the patient had cardiac catheterization and bypass surgery. PLAN: 1. Aspirin. 2. Atorvastatin. 3. He is on low-dose metoprolol. We will continue to follow with you. Job ID: [id number]
--- NOTE | 2020-09-10 14:15 | PDOC.HOSPP ---
- Subjective Encounter Date: 09/10/20 Encounter Time: 08:15 Subjective: is sitting in chair, feels good no pain got his chest tubes removed - Objective Vital Signs & Weight: Vital Signs (12 hours) Temp Pulse Pulse Pulse BP BP BP 09/10/20 12:45 98 81 124/82 120/84 09/10/20 12:00 98.8 F 09/10/20 10:50 74 127/89 09/10/20 09:00 98.7 F 09/10/20 08:20 94 92 141/83 H 139/81 09/10/20 08:00 09/10/20 04:00 98.3 F Pulse Ox Pulse Ox Pulse Ox 09/10/20 12:45 98 92 L 09/10/20 12:00 09/10/20 10:50 09/10/20 09:00 09/10/20 08:20 100 98 09/10/20 08:00 98 09/10/20 04:00 Weight Weight 188 lb 7.924 oz Most Recent Monitor Data Heart Rate from ECG 85 NIBP 138/73 NIBP BP-Mean 130 Respiration from ECG 26 SpO2 97 I&O: 09/09/20 09/10/20 09/11/20 06:59 06:59 06:59 Intake Total 1895 2340 720 Output Total 1340 1940 220 Balance 555 400 500 Result Diagrams: 09/09/20 03:45 09/09/20 03:45 Additional Labs: Accuchecks 09/08/20 08:08 POC Glucose 120 H Hospitalist ROS - Medication Medications: Active Medications Generic Name Dose Route Start Last Admin Trade Name Elyssa PRN Reason Stop Dose Admin Acetaminophen 650 mg 09/07/20 09:26 09/08/20 03:00 Acetaminophen 325 Mg Tab PO 650 mg Q6H PRN Administration Headache/Fever Or Mild Pain Hydrocodone Bitart/Acetaminophen 1 tab 09/07/20 09:26 09/10/20 05:45 Hydrocodone/Acetaminophen 5/325 Mg Tablet PO 1 tab Q4H PRN Administration Moderate Pain (4-6) Hydrocodone Bitart/Acetaminophen 2 tab 09/07/20 09:26 09/10/20 08:56 Hydrocodone/Acetaminophen 5/325 Mg Tablet PO 2 tab Q4H PRN Administration Severe Pain (7-10) Aspirin 325 mg 09/10/20 09:00 09/10/20 08:28 Aspirin 325 Mg Enteric Coated Tablet PO 325 mg DAILY [facility] Administration Atorvastatin Calcium 20 mg 09/08/20 21:00 09/09/20 20:36 Atorvastatin Calcium 20 Mg Tab PO 20 mg HS [facility] Administration Calcium/Vitamin D 1 tab 09/07/20 17:00 09/10/20 08:28 Calcium Carbonate 600 Mg + Vit D Tab PO 1 tab BID-WM KATHIE Administration Docusate Sodium 100 mg 09/07/20 09:26 09/10/20 08:28 Docusate 100 Mg Cap PO 100 mg BID [facility] Administration Ergocalciferol 1.25 mg 09/07/20 12:00 09/07/20 13:24 Ergocalciferol 1.25 Mg(50,000 Units) Cap PO Not Given Q7D [facility] Guaifenesin/Dextromethorphan 15 ml 09/09/20 12:11 09/10/20 01:05 Guaifenesin Dm 100-10/5 Ml Udcup PO 15 ml Q4H PRN Administration Cough Hydralazine HCl 10 mg 09/07/20 09:26 09/08/20 18:04 Hydralazine 20 Mg/Ml Vial SLOW IVP 10 mg Q6H PRN Administration To Maintain SBP< 140mmHG Hydralazine HCl 25 mg 09/10/20 09:00 09/10/20 10:50 Hydralazine 25 Mg Tab PO Not Given BID [facility] Metoprolol Tartrate 25 mg 09/10/20 09:00 09/10/20 10:50 Metoprolol Tartrate 25 Mg Tab PO Not Given BID [facility] Morphine Sulfate 2 mg 09/07/20 09:26 09/09/20 14:49 Morphine 2 Mg/Ml Vial SLOW IVP 2 mg Q15MIN PRN Administration Severe Pain (7-10) Morphine Sulfate 15 mg 09/07/20 15:00 09/10/20 08:27 Morphine Er 15 Mg Tab PO 15 mg TID [facility] Administration Multivitamins 1 tab 09/08/20 09:00 09/10/20 08:27 Multivit, Therapeutic 1 Tab PO 1 tab DAILY [facility] Administration Hospitalist Exam Vitals: Vital Signs (12 hours) Temp Pulse Pulse Pulse BP BP BP 09/10/20 12:45 98 81 124/82 120/84 09/10/20 12:00 98.8 F 09/10/20 10:50 74 127/89 09/10/20 09:00 98.7 F 09/10/20 08:20 94 92 141/83 H 139/81 09/10/20 08:00 09/10/20 04:00 98.3 F Pulse Ox Pulse Ox Pulse Ox 09/10/20 12:45 98 92 L 09/10/20 12:00 09/10/20 10:50 09/10/20 09:00 09/10/20 08:20 100 98 09/10/20 08:00 98 09/10/20 04:00 Weight Weight 188 lb 7.924 oz Most Recent Monitor Data Heart Rate from ECG 85 NIBP 138/73 NIBP BP-Mean 130 Respiration from ECG 26 SpO2 97 General Appearance: awake alert Eye: PERRL, anicteric sclera ENT: no oropharyngeal lesions, moist mucosa Neck: supple, no JVD Heart: RRR, no murmur Respiratory: no wheezes, no rales Gastrointestinal: soft, non-tender, non-distended, normal bowel sounds Extremities: no cyanosis, no edema Neurological: cranial nerve grossly intact, no focal deficits Psychiatric: normal affect, A&O x 3 Hosp A/P (1) S/P CABG x 2 Code(s): Z95.1 - PRESENCE OF AORTOCORONARY BYPASS GRAFT Status: Acute (2) COPD (chronic obstructive pulmonary disease) Status: Chronic Qualifiers: COPD type: chronic bronchitis Chronic bronchitis type: unspecified Qualified Code(s): J42 - Unspecified chronic bronchitis (3) Chronic kidney disease Code(s): N18.9 - CHRONIC KIDNEY DISEASE, UNSPECIFIED Status: Chronic Qualifiers: Chronic kidney disease stage: stage 3 (moderate) (4) Coronary artery disease Code(s): I25.10 - ATHSCL HEART DISEASE OF [place] CORONARY ARTERY W/O ANG PCTRS Status: Chronic Qualifiers: Coronary Disease-Associated Artery/Lesion type: bypass graft [place] vs. transplanted heart: [place] heart Associated angina: without angina Qualified Code(s): I25.810 - Atherosclerosis of coronary artery bypass graft(s) without angina pectoris (5) Hypertension Code(s): I10 - ESSENTIAL (PRIMARY) HYPERTENSION Status: Chronic Qualifiers: Hypertension type: essential hypertension Qualified Code(s): I10 - Essential (primary) hypertension (6) NSTEMI (non-ST elevated myocardial infarction) Code(s): I21.4 - NON-ST ELEVATION (NSTEMI) MYOCARDIAL INFARCTION Status: Acute (7) Chronic pain syndrome Code(s): G89.4 - CHRONIC PAIN SYNDROME Status: Chronic (8) Ischemic cardiomyopathy Code(s): I25.5 - ISCHEMIC CARDIOMYOPATHY Status: Chronic - Plan post op cabg is recovering well had singletary to lad and right int mammary to prox pda on 09/07 on asp, lipitor, lopressor, hydralazine, MS contin tid, fentanyl prn iv, clonidine tts 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
[2020-09-10] MEDS: Atorvastatin Calcium 20 MG TAB PO SCH (19:50)
[2020-09-11] MEDS: HYDROcodone/Acetaminophen 5/325 mg Tablet PO PRN ×3 (02:17→20:19)
[2020-09-11 04:53] LABS: #Basophils 0.1 thou/uL (0.0-0.2); #Eosinphils 0.3 thou/uL (0.0-0.7); #Lymphocytes 2.5 thou/uL (1.20-3.40); %Basophils 0.7 % (0.0-1.0); %Eosinophils 2.5 % (0.0-10.0); %Lymphocytes 23.5 % (21.0-51.0); %Monocytes 8.9 % (0.0-10.0); %Neutrophils 64.4 % (42.0-75.0); Hemoglobin 11.1 g/dL (14.0-18.0); Mean Corpuscular Hemoglobin 30.6 pg (27.0-31.0); Mean Corpuscular Volume 92.5 fL (78.0-98.0); Mean Platelet Volume 8.4 fL (7.4-10.4); Platelet Count 221 thou/uL (130-400); RBC Distribution Width 12.8 % (11.5-14.5); Red Blood Cell (RBC) Count 3.63 mill/uL (4.70-6.10); White Blood Cell (WBC) Count 10.8 thou/uL (4.8-10.8)
[2020-09-11 05:28] LABS: Anion Gap 12 mmol/L (10-20); BUN (Urea Nitrogen) 17 mg/dL (8.4-25.7); Calc. Creatinine Clearance 79 mL/min (70-130); Calcium 8.2 mg/dL (7.8-10.44); Carbon Dioxide 25 mmol/L (23-31); Chloride 103 mmol/L (98-107); Glucose 114 mg/dL (80-115); Potassium 3.3 mmol/L (3.5-5.1); Sodium 137 mmol/L (136-145)
--- NOTE | 2020-09-11 08:02 | RAD ---
CHEST 1 VIEW: Date: 09/11/2020 COMPARISON: 09/08/2020. HISTORY: Status post open heart surgery. FINDINGS: Redemonstration of sternotomy wires, HemoSplit dialysis catheter, and right-sided subclavian vascular catheter. Interval removal of right-sided chest tube and mediastinal drainage catheter. Normal cardi ac silhouette. Lungs and pleural spaces are clear. There is scarring or atelectasis in the left lung base. No pneumothorax. IMPRESSION: Findings compatible with recent open heart surgery. Interval removal of chest tube and mediastinal dr brewer catheter. POS: PPP
[2020-09-11] MEDS: Morphine 2 MG/ML VIAL SLOW IVP PRN ×2 (08:38→12:57)
[2020-09-11] MEDS: Multivit, Therapeutic 1 TAB PO SCH (08:42)
[2020-09-11] MEDS: hydrALAZINE 25 MG TAB PO SCH ×2 (08:42→22:10)
[2020-09-11] MEDS: Docusate 100 MG CAP PO SCH ×2 (08:42→22:10)
[2020-09-11] MEDS: Aspirin 325 mg Enteric Coated Tablet PO SCH (08:42)
[2020-09-11] MEDS: Metoprolol Tartrate 25 MG TAB PO SCH (08:42)
[2020-09-11] MEDS: Calcium Carbonate 600 MG + Vit D TAB PO SCH ×2 (08:42→16:09)
[2020-09-11] MEDS: Morphine ER 15 MG TAB PO SCH ×3 (08:45→22:08)
--- NOTE | 2020-09-11 10:18 | PRG ---
DATE OF SERVICE: 09/11/2020 SUBJECTIVE: Mr. Kennedy is having a lot of postoperative pain. Otherwise, he is doing well. He is not short of breath. OBJECTIVE: VITAL SIGNS: His blood pressure 135/86, pulse 77 and regular. LUNGS: Clear. CARDIAC: Normal S1, normal S2. ABDOMEN: Soft, nontender. EXTREMITIES: No edema. ASSESSMENT: 1. Status post bypass surgery, doing well. 2. Hypertension. 3. Renal failure, doing amazingly well with potassium of 3.3 and creatinine down to 1.2! PLAN: 1. Change from metoprolol to carvedilol. 2. If needed, we will add amlodipine. Continue to follow with you. Job ID: [id number]
--- NOTE | 2020-09-11 15:02 | PDOC.HOSPP ---
- Subjective Encounter Date: 09/11/20 Encounter Time: 13:00 Subjective: no new complaints he didn't walk today but has walked nearly 180ft yesterday with cardiac rehab - Objective Vital Signs & Weight: Vital Signs (12 hours) Temp Pulse Pulse Pulse Resp BP BP 09/11/20 13:08 92 86 130/73 09/11/20 12:15 98.3 F 83 16 09/11/20 08:42 77 135/80 09/11/20 08:00 97.6 F 77 14 09/11/20 03:39 20 09/11/20 03:34 97.6 F 86 22 H BP BP BP Pulse Ox Pulse Ox 09/11/20 13:08 128/83 97 09/11/20 12:15 121/76 95 09/11/20 08:42 09/11/20 08:00 135/86 97 09/11/20 03:39 09/11/20 03:34 149/86 H 97 Weight Weight 195 lb 9.6 oz Most Recent Monitor Data Heart Rate from ECG 89 NIBP 138/86 NIBP BP-Mean 103 Respiration from ECG 21 SpO2 96 I&O: 09/10/20 09/11/20 09/12/20 06:59 06:59 06:59 Intake Total 2340 1600 240 Output Total 1940 720 Balance 400 880 240 Result Diagrams: 09/11/20 04:18 09/11/20 04:18 Hospitalist ROS - Medication Medications: Active Medications Generic Name Dose Route Start Last Admin Trade Name Freq PRN Reason Stop Dose Admin Acetaminophen 650 mg 09/07/20 09:26 09/08/20 03:00 Acetaminophen 325 Mg Tab PO 650 mg Q6H PRN Administration Headache/Fever Or Mild Pain Hydrocodone Bitart/Acetaminophen 1 tab 09/07/20 09:26 09/10/20 23:19 Hydrocodone/Acetaminophen 5/325 Mg Tablet PO 1 tab Q4H PRN Administration Moderate Pain (4-6) Hydrocodone Bitart/Acetaminophen 2 tab 09/07/20 09:26 09/11/20 11:07 Hydrocodone/Acetaminophen 5/325 Mg Tablet PO 2 tab Q4H PRN Administration Severe Pain (7-10) Albuterol/Ipratropium 3 ml 09/09/20 12:11 09/11/20 03:39 Ipratropium/Albuterol Sulfate 3 Ml Neb NEB 3 ml [id number] PRN Administration Respiratory Distress Aspirin 325 mg 09/10/20 09:00 09/11/20 08:42 Aspirin 325 Mg Enteric Coated Tablet PO 325 mg DAILY KATHIE Administration Atorvastatin Calcium 20 mg 09/08/20 21:00 09/10/20 19:50 Atorvastatin Calcium 20 Mg Tab PO 20 mg HS KATHIE Administration Calcium/Vitamin D 1 tab 09/07/20 17:00 09/11/20 08:42 Calcium Carbonate 600 Mg + Vit D Tab PO 1 tab BID-WM KATHIE Administration Docusate Sodium 100 mg 09/07/20 09:26 09/11/20 08:42 Docusate 100 Mg Cap PO 100 mg BID KATHIE Administration Ergocalciferol 1.25 mg 09/07/20 12:00 09/07/20 13:24 Ergocalciferol 1.25 Mg(50,000 Units) Cap PO Not Given Q7D [facility] Guaifenesin/Dextromethorphan 15 ml 09/09/20 12:11 09/10/20 01:05 Guaifenesin Dm 100-10/5 Ml Udcup PO 15 ml Q4H PRN Administration Cough Hydralazine HCl 10 mg 09/07/20 09:26 09/08/20 18:04 Hydralazine 20 Mg/Ml Vial SLOW IVP 10 mg Q6H PRN Administration To Maintain SBP< 140mmHG Hydralazine HCl 25 mg 09/10/20 09:00 09/11/20 08:42 Hydralazine 25 Mg Tab PO 25 mg BID KATHIE Administration Morphine Sulfate 2 mg 09/07/20 09:26 09/11/20 12:57 Morphine 2 Mg/Ml Vial SLOW IVP 2 mg Q15MIN PRN Administration Severe Pain (7-10) Morphine Sulfate 15 mg 09/07/20 15:00 09/11/20 08:45 Morphine Er 15 Mg Tab PO 15 mg TID [facility] Administration Multivitamins 1 tab 09/08/20 09:00 09/11/20 08:42 Multivit, Therapeutic 1 Tab PO 1 tab DAILY KATHIE Administration Hospitalist Exam Vitals: Vital Signs (12 hours) Temp Pulse Pulse Pulse Resp BP BP 09/11/20 13:08 92 86 130/73 09/11/20 12:15 98.3 F 83 16 09/11/20 08:42 77 135/80 02/23/21 08:00 97.6 F 77 14 09/11/20 03:39 20 09/11/20 03:34 97.6 F 86 22 H BP BP BP Pulse Ox Pulse Ox 09/11/20 13:08 128/83 97 09/11/20 12:15 121/76 95 09/11/20 08:42 09/11/20 08:00 135/86 97 09/11/20 03:39 09/11/20 03:34 149/86 H 97 Weight Weight 195 lb 9.6 oz Most Recent Monitor Data Heart Rate from ECG 89 NIBP 138/86 NIBP BP-Mean 103 Respiration from ECG 21 SpO2 96 General Appearance: awake alert Eye: PERRL, anicteric sclera ENT: no oropharyngeal lesions, moist mucosa Neck: supple, no JVD Heart: RRR, no murmur Respiratory: no wheezes, no rales Gastrointestinal: soft, non-tender, non-distended, normal bowel sounds Extremities: no cyanosis, no edema Neurological: cranial nerve grossly intact, no focal deficits Psychiatric: A&O x 3 Hosp A/P (1) S/P CABG x 2 Code(s): Z95.1 - PRESENCE OF AORTOCORONARY BYPASS GRAFT Status: Acute (2) COPD (chronic obstructive pulmonary disease) Status: Chronic Qualifiers: COPD type: chronic bronchitis Chronic bronchitis type: unspecified Qu alified Code(s): J42 - Unspecified chronic bronchitis (3) Chronic kidney disease Code(s): N18.9 - CHRONIC KIDNEY DISEASE, UNSPECIFIED Status: Chronic Qualifiers: Chronic kidney disease stage: stage 3 (moderate) (4) Coronary artery disease Code(s): I25.10 - ATHSCL HEART DISEASE OF [place] CORONARY ARTERY W/O ANG PCTRS Status: Chronic Qualifiers: Coronary Disease-Associated Artery/Lesion type: bypass graft [place] vs. transplanted heart: [place] heart Associated angina: without angina Qualified Code(s): I25.810 - Atherosclerosis of coronary artery bypass graft(s) without angina pectoris (5) Hypertension Code(s): I10 - ESSENTIAL (PRIMARY) HYPERTENSION Status: Chronic Qualifiers: Hypertension type: essential hypertension Qualified Code(s): I10 - Essential (primary) hypertension (6) NSTEMI (non-ST elevated myocardial infarction) Code(s): I21.4 - NON-ST ELEVATION (NSTEMI) MYOCARDIAL INFARCTION Status: Acute (7) Chronic pain syndrome Code(s): G89.4 - CHRONIC PAIN SYNDROME Status: Chronic (8) Ischemic cardiomyopathy Code(s): I25.5 - ISCHEMIC CARDIOMYOPATHY Status: Chronic - Plan post op cabg is recovering well had singletary to lad and right int mammary to prox pda on 09/07 on asp, lipitor, coreg, hydralazine, MS contin tid, fentanyl prn iv, clonidine tts h/o 30% ef due to [employer] 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 has had no withdrawal symptoms from high narcotic use prior to hospitalization, currently on MS contin tid.
[2020-09-11] MEDS: Carvedilol 6.25 MG TAB PO SCH (16:10)
[2020-09-11] MEDS: Atorvastatin Calcium 20 MG TAB PO SCH (22:11)
[2020-09-12] MEDS: HYDROcodone/Acetaminophen 5/325 mg Tablet PO PRN (02:41)
[2020-09-12 06:25] VITALS: BMI 27.5
[2020-09-12] MEDS: Aspirin 325 mg Enteric Coated Tablet PO SCH (09:12)
[2020-09-12] MEDS: Calcium Carbonate 600 MG + Vit D TAB PO SCH (09:12)
[2020-09-12] MEDS: Carvedilol 6.25 MG TAB PO SCH (09:12)
[2020-09-12] MEDS: Morphine ER 15 MG TAB PO SCH (09:13)
[2020-09-12] MEDS: Multivit, Therapeutic 1 TAB PO SCH (09:13)
[2020-09-12] MEDS: Docusate 100 MG CAP PO SCH (09:14)
[2020-09-12] MEDS: hydrALAZINE 25 MG TAB PO SCH (09:14)
--- NOTE | 2020-09-12 11:03 | PRG ---
DATE OF SERVICE: 09/12/2020 SUBJECTIVE: Mr. Kennedy complains of chest pain, it is musculoskeletal. He is breathing okay. OBJECTIVE: VITAL SIGNS: Blood pressure is 126/72, pulse in the 80s. LUNGS: Clear. CARDIAC: Normal S1, normal S2. ABDOMEN: Soft, nontender. EXTREMITIES: There is no edema. PERTINENT LABORATORY DATA: Creatinine continues to improve it is down to 1.2. Potassium is 3.3. ASSESSMENT: 1. Status post coronary bypass grafting. 2. Renal failure improved. 3. Ejection fraction preoperatively was 30% to 35% on echocardiogram. The cath report revealed ejection fraction 35%. PLAN: 1. Agree with increasing carvedilol. 2. Give extra potassium. 3. The patient states he is currently homeless. He says he will make it at home. Hopefully, arrangements can be made to try to help assist him at the time of discharge. Job ID: [id number]
[2020-09-12] MEDS ORDERED: Potassium Chloride 20 MEQ TAB PO SCH (12:00)
[2020-09-12 12:47] VITALS: BP 163/79; TEMP 98
--- NOTE | 2020-09-12 17:19 | DIS ---
DATE OF ADMISSION: 09/05/2020 DATE OF DISCHARGE: 09/12/2020 DISCHARGE DISPOSITION: Patient signed out against medical advice. PRIMARY DISCHARGE DIAGNOSES: Status post CABG for 2-vessel disease, non ST elevation myocardial infarction, chronic obstructive pulmonary disease, chronic kidney disease, chronic pain syndrome, hypertension, ischemic cardiomyopathy with ejection fraction of around 30%. PROCEDURES DONE DURING HOSPITALIZATION: The patient has had CABG done on 09/07/2020, and had SCRUGGS to LAD and right internal mammary to proximal PDA done by Dr. Woodard. Echo with 2D Doppler done on 09/05/2020 showed ejection fraction of 30% to 35%. Cardiac catheterization done on 09/06/[address] Mackey showed short left main without significant stenosis. LAD ostial 60% to 70%, proximal LAD 50% to 60%, ramus 50%, RCA 95%, LV ejection fraction 35%. H and H 11 and 33, platelet count 221, BUN 17, creatinine 1.2 on the . Total cholesterol 91, triglycerides 116, LDL 41, HDL 27. Admitting BUN and creatinine was 26 and 3.4. Troponin-I was indeterminate peaking up to 0.05. CK-MB 1.9. COVID-19 PCR was not detected on 09/05/2020. BRIEF COURSE DURING HOSPITALIZATION: Patient initially got admitted on the with complaints of chest pain. He had indeterminate troponin. He was taken for cardiac catheterization, which showed multivessel disease. Prior to arrival here, patient was in hospice and was on heavy narcotics as well, taking up to 100 mg of that. Echo showed ejection fraction of 30% to 35%. Patient was evaluated by Dr. Woodard. He has had 2-vessel CABG done, both arterial grafts placed on the . In view of heavy narcotic usage, patient was on MS Contin 15 mg 3 times daily in addition to [place] for breakthrough pain and morphine as well. Postop, he was recovering well. This morning, the patient did not want to stay in the hospital anymore. He has had Case Management consultation and the plans were for the patient to move into [facility]. He was apparently homeless prior to arrival. Before any of this could be set up, the patient left against medical advice. He was clearly oriented and knew that he had bypass surgery done, and is at risk for multiple complications if he were to drive and especially if he is homeless. Despite multiple counseling, patient signed out against advice. He would not want to listen and asked the nurse to drive him to the front lobby so that he could get into his car and call his friend. He apparently had his phone in his truck to call his friend. His overall prognosis is guarded in view of above-mentioned factors and recent CABG. He is also at high risk for readmission and likely complications. The patient is clearly aware of above. Please note, I have seen and examined the patient on the day of discharge. Job ID: [id number]
[2020-09-14] MEDS ORDERED: cloNIDine 0.1mg/24 Hour PATCH TD SCH ×2 (09:00)
== END 2020-09-12 12:45 | disposition left against medical advice (07) | DRG 234 ==
LOC: EEVIPCON 11:16 → ERS 11:16 → CCU 14:06 → 2NO 09-10 22:28
PROVIDERS: ADMIT Internal Medicine; ATTEND Internal Medicine
PROC: 4A023N7 Measurement of Cardiac Sampling and Pressure, Left Heart, Percutaneous Approach (ICD-10-PCS; 2020-09-06)
PROC: B2111ZZ Fluoroscopy of Multiple Coronary Arteries using Low Osmolar Contrast (ICD-10-PCS; 2020-09-06)
PROC: B2151ZZ Fluoroscopy of Left Heart using Low Osmolar Contrast (ICD-10-PCS; 2020-09-06)
PROC: 02100Z9 Bypass Coronary Artery, One Artery from Left Internal Mammary, Open Approach (ICD-10-PCS; principal; 2020-09-07)
PROC: 02100Z8 Bypass Coronary Artery, One Artery from Right Internal Mammary, Open Approach (ICD-10-PCS; 2020-09-07)
PROC: 5A1221Z Performance of Cardiac Output, Continuous (ICD-10-PCS; 2020-09-07)
PROC: 0JH63XZ Insertion of Tunneled Vascular Access Device into Chest Subcutaneous Tissue and Fascia, Percutaneous Approach (ICD-10-PCS; 2020-09-07)
PROC: 02HV33Z Insertion of Infusion Device into Superior Vena Cava, Percutaneous Approach (ICD-10-PCS; 2020-09-07)
PROC: B518ZZA Fluoroscopy of Superior Vena Cava, Guidance (ICD-10-PCS; 2020-09-07)
PROC: B548ZZA Ultrasonography of Superior Vena Cava, Guidance (ICD-10-PCS; 2020-09-07)
PROC: 3E033XZ Introduction of Vasopressor into Peripheral Vein, Percutaneous Approach (ICD-10-PCS; 2020-09-07)
DX: I21.4 Non-ST elevation (NSTEMI) myocardial infarction (principal); N18.4 Chronic kidney disease, stage 4 (severe); I50.22 Chronic systolic (congestive) heart failure; I13.0 Hypertensive heart and chronic kidney disease with heart failure and stage 1 through stage 4 chronic kidney disease, or unspecified chronic kidney disease; E87.1 Hypo-osmolality and hyponatremia; N17.9 Acute kidney failure, unspecified; N25.81 Secondary hyperparathyroidism of renal origin; Z20.822 Contact with and (suspected) exposure to COVID-19; J44.9 Chronic obstructive pulmonary disease, unspecified; G89.4 Chronic pain syndrome; I25.5 Ischemic cardiomyopathy; E87.6 Hypokalemia; I25.110 Atherosclerotic heart disease of native coronary artery with unstable angina pectoris; F17.210 Nicotine dependence, cigarettes, uncomplicated; D63.1 Anemia in chronic kidney disease; E55.9 Vitamin D deficiency, unspecified; I49.3 Ventricular premature depolarization; Z79.899 Other long term (current) drug therapy; Z79.82 Long term (current) use of aspirin
CPT/HCPCS: 0240U; 36415; 36416; 36430; 71045; 76770; 76942; 80048; 80053; 80061; 82306; 82553; 82805; 83605; 83690; 83735; 83880; 83970; 84100; 84484; 85025; 85347; 85610; 85730; 86850; 86900; 86901; 93005; 93010; 93306; 93458; 93798; 94640; 96365; 96366; 96368; 96375; 99152; 99153; C1752; J0282; J0360; J0690; J1100; J1642; J1644; J1815; J1885; J1940; J2001; J2150; J2250; J2260; J2270; J2405; J2440; J2720; J3010; J3370; J3475; J3480; J3490; J7050; J7620; P9016; P9045; Q9967; S0017; S0028